=== PATIENT | female | born 1995 | race Caucasian/White ===

== ENCOUNTER → 2017-11-22 | Outpatient (CLI) | payer OTHER ==
[~2017-11-22] MED LIST: ACET-2303 PO; ACHD5005 PO; AMOX500C2 PO; CIPR500T4 PO; DCS100C PO; FRS325T PO; HYDR1TAB8 OP; IBP600T1 PO; LBT200T PO; LRT10T; METR500T21 PO; ONDA4TAB11 PO; PREN1TAB14 PO; TRAM50TA2 PO
--- NOTE | 2017-11-22 12:31 | Diagnostic Imaging Report ---
INDICATION: survey. TECHNIQUE: Multiple real-time grayscale images were obtained over the gravid uterus. COMPARISON: There are no prior studies available for comparison. FINDINGS: There is a single live fetus in breech presentation. heart motion was noted and a rate of 158 BPM is recorded. There are no abnormalities identified. The growth parameters are fairly uniform. However the LMP percentile is only in the 4th percentile. The placenta is posterior and there is no previa. The amniotic fluid volume is within normal limits. Biometrical measurements are as follows: Biparietal 4.0 cm, age 18 weeks 2 days. Head circumference 15.6 cm, age 18 weeks 4 days. Abdominal circumference 13.6 cm, age 19 weeks 1 days. Femur length 2.8 cm, age 18 weeks 4 days. Sonographic estimate age: 18 weeks 5 days. Sonographic estimated date of delivery: 04/20/18. Estimated Weight: 256 gm (+/- 37 gm). LMP percentile: 4%. heart rate: 158 beats per minute. number: 1 of 1. IMPRESSION: 1. There is a single live fetus approximately 18 weeks 5 days gestation +/- 1 week. The EDC is April 20, 2018. 2. There were no abnormalities identified. 3. The growth parameters suggest the estimated gestational age is in the 4th percentile. This does suggest IUGR if the dates are correct. A short-term (4-6 week) followup exam would be recommended for continued evaluation of the growth. Dictated by: Dictated on workstation # [id number]
== END ==
LOC: RAD 10:01
PROVIDERS: ATTEND Obstetrics & Gynecology
DX: Z36.89 Encounter for other specified antenatal screening (principal); Z3A.18 18 weeks gestation of pregnancy
CPT/HCPCS: 76805

== ENCOUNTER 2018-03-14 09:00 | Outpatient (CLI) | payer OTHER ==
[~2018-03-14 09:00] MED LIST changes: +BETAMETHASONE ACE/NA PHOS 6 MG/ML (CELESTONE SOLUSPAN) IM SCH
[2018-03-14 09:05] VITALS: BP 152/96
[2018-03-14] MEDS ORDERED: D5 LR IV SOLUTION 1,000 ML IV ONE (09:13)
[2018-03-14] MEDS ORDERED: D5 LR IV SOLUTION 1,000 ML IV SCH (09:15)
[2018-03-14] MEDS ORDERED: BETAMETHASONE ACE/NA PHOS 6 MG/ML (CELESTONE SOLUSPAN) ONE (09:19)
[2018-03-14 09:43] LABS: HEMOGLOBIN 11.1 G/DL (11.5-16.0); MEAN PLATELET VOLUME 10.1 FL (7.4-10.4); RED BLOOD COUNT 3.4 10^6/uL (4.35-5.85); RED CELL DISTRIBUTION WIDTH 13.3 % (10.0-14.5); WHITE BLOOD COUNT 10.5 10^3/uL (4.3-11.0)
[2018-03-14] MEDS ORDERED: PREN-37 PO ×2 (11:27)
[2018-03-15] MEDS ORDERED: BETAMETHASONE ACE/NA PHOS 6 MG/ML (CELESTONE SOLUSPAN) IM SCH (09:00)
--- NOTE | 2018-03-15 15:35 | Physician Query-Final Dx ---
MATEO MICHELLE 03/15/18 1535: Clinic Account Progress/Dx Physician Query: Please give diagnosis Date of Service March 14, 2018 at 09:00 BETTY GALAVIZ DO 03/19/18 0705: Clinic Account Progress/Dx DIAGNOSIS: Diagnosis 36 week IUP IUGR <5th percentile MATEO MICHELLE March 15, 2018 15:35 BETTY GALAVIZ DO Mar 19, 2018 07:05
[2018-03-19] MEDS ORDERED: ACHD5005 PO (21:00)
[2018-03-19] MEDS ORDERED: IBUP-844 PO (21:00)
[2018-03-19] MEDS ORDERED: DOCU100C37 PO (21:00)
== END 2018-03-14 11:35 | disposition home or self-care (01) ==
LOC: LDRP 09:00 → WSo 09:00
PROVIDERS: ATTEND Obstetrics & Gynecology
DX: O36.5930 Maternal care for other known or suspected poor fetal growth, third trimester, not applicable or unspecified (principal); Z3A.36 36 weeks gestation of pregnancy
CPT/HCPCS: 36415; 85027; 86850; 86900; 86901; 96360; 96361; 96372; 99213

== ENCOUNTER → 2018-03-15 | Outpatient (CLI) | payer OTHER ==
[~2018-03-15] MED LIST changes: -BETAMETHASONE ACE/NA PHOS 6 MG/ML (CELESTONE SOLUSPAN) IM SCH; +BETAMETHASONE ACE/NA PHOS 6 MG/ML (CELESTONE SOLUSPAN) ONE; +CITA10TA12 PO; +DOCU100C37 PO; +FERR-84 PO; +IBUP-844 PO; +OXYC-471 PO; +PREN-37 PO
[2018-03-15 10:14] VITALS: BP 134/78
--- NOTE | 2018-03-19 14:08 | Physician Query-Final Dx ---
ANGELLA GIMENEZ 03/19/18 1408: Clinic Account Progress/Dx Physician Query: Please give diagnosis Date of Service March 15, 2018 at 09:02 BETTY GALAVIZ DO 03/19/18 1655: Clinic Account Progress/Dx DIAGNOSIS: Diagnosis 36 week IUP Oligohydramnios IUGR ANGELLA GIMENEZ Mar 19, 2018 14:08 BETTY GALAVIZ DO Mar 19, 2018 16:55
== END ==
LOC: WSo 09:02
PROVIDERS: ATTEND Obstetrics & Gynecology
DX: O41.03X0 Oligohydramnios, third trimester, not applicable or unspecified (principal); O36.5930 Maternal care for other known or suspected poor fetal growth, third trimester, not applicable or unspecified; Z3A.36 36 weeks gestation of pregnancy
CPT/HCPCS: 59025; 96372

== ENCOUNTER 2018-03-19 13:35 | Inpatient (IN) | payer OTHER ==
[2018-03-19] VITALS (7 sets, daily range): BP systolic 123–157; BP diastolic 73–104
[~2018-03-19] VITALS: Ht 157.5 cm; Wt 53.6 kg
[~2018-03-19 13:35] MED LIST changes: -BETAMETHASONE ACE/NA PHOS 6 MG/ML (CELESTONE SOLUSPAN) ONE; -CITA10TA12 PO; -DOCU100C37 PO; -FERR-84 PO; -IBUP-844 PO; -OXYC-471 PO
[2018-03-19] MEDS ORDERED: D5 LR IV SOLUTION 1,000 ML IV ONE (15:04)
[2018-03-19] MEDS: D5 LR IV SOLUTION 1,000 ML IV SCH ×2 (15:10→15:36)
[2018-03-19 15:22] LABS: BASOPHILS % (AUTO) 0 % (0-10); EOSINOPHILS # (AUTO) 0.2 10^3/uL (0.0-0.3); EOSINOPHILS % (AUTO) 1 % (0-10); HEMATOCRIT 32 % (35-52); HEMOGLOBIN 11.5 G/DL (11.5-16.0); LYMPHOCYTES # (AUTO) 2.2 X 10^3 (1.0-4.0); LYMPHOCYTES % (AUTO) 14 % (12-44); MEAN CORPUSCULAR HEMOGLOBIN 34 PG (25-34); MEAN CORPUSCULAR HGB CONC 36 G/DL (32-36); MEAN CORPUSCULAR VOLUME 94 FL (80-99); MEAN PLATELET VOLUME 10.6 FL (7.4-10.4); MONOCYTES # (AUTO) 1.3 X 10^3 (0.0-1.0); MONOCYTES % (AUTO) 8 % (0-12); NEUTROPHILS # (AUTO) 12.2 X 10^3 (1.8-7.8); NEUTROPHILS % (AUTO) 77 % (42-75); PLATELET COUNT 175 10^3/uL (130-400); RED BLOOD COUNT 3.43 10^6/uL (4.35-5.85); RED CELL DISTRIBUTION WIDTH 12.8 % (10.0-14.5); WHITE BLOOD COUNT 15.8 10^3/uL (4.3-11.0)
[2018-03-19 15:46] LABS: BAND NEUTROPHILS 0 %; BASOPHILS % (MANUAL) 0 %; EOSINOPHILS % (MANUAL) 2 %; LYMPHOCYTES % (MANUAL) 12 %; MONOCYTES % (MANUAL) 10 %; NEUTROPHILS % (MANUAL) 76 %
[2018-03-19 15:47] LABS: RBC MORPH NORMAL
--- NOTE | 2018-03-19 16:59 | History & Physical-OB ---
OB - Chief Complaint & HPI Date/Time Date of Admission: Date of Admission: Mar 19, 2018 at 1:35 pm Time Seen by Provider: 13:30 Chief Complaint/History OB-Reason for Admission/Chief: Section Hx : 3 Hx Para: 1 Expected Date of Delivery: Apr 11, 2018 Gestational Age in Weeks: 36 Gestational Age in Days: 4 Indication for : desires repeat Other reason for admission: Sent up from clinic due to worsening Oligohydramnios on today's BPP due to severe IUGR. Grade 4 placenta Admission Nurse Assessment Rev: Yes History of Labs B pos Antibody neg RI RPR NR HBsAg NR HIV NR GC neg GBS neg Allergies and Home Medications Allergies Coded Allergies: NKANo Known Allergies (Unverified Allergy, Mild, 12/06/09) Home Medications Vit/Iron Fumarate/FA 1 Each Tablet, 1 EACH PO DAILY, (Reported) Patient Home Medication List Home Medication List Reviewed: Yes OB - History Hx of Present Care: Yes Ultrasounds: Abnormal US findings (Severe IUGR) Obstetrical Complications: Growth Restriction (<5%tile) Obstetrical History Hx Induced Hypertens: Yes (this ) Delivery History Hx Blood Disorders: No Adverse Rxn to Tranfusion: No Patient Past Medical History Hx of abruption, and tobacco use/substance abuse Social History/Family History HIV/AIDS: No Recent Infectious Disease Expo: No Sexually Transmitted Disease: No 2nd Hand Smoke Exposure: No Immunizations Hepatitis B: No Tetanus Booster (TDap): Unknown OB - Admission Exam Physical Exam HEENT: NCAT Heart: Rhythm Normal Lungs: Clear Abdomen: Gravid Extremities: Normal Reflexes: Normal Membranes: Intact Heart Rate: 130's Accelerations: Accelerations Present Decelerations: No Decelerations Short Term Variability: Present Senior Living Variability: Average (6-25) Contractions on Admission: >10 Minutes Apart Intensity: Mild Labs Laboratory Tests Test 03/19/18 15:10 Range/Units White Blood Count 15.8 H 4.3-11.0 10^3/uL Red Blood Count 3.43 L 4.35-5.85 10^6/uL Hemoglobin 11.5 11.5-16.0 G/DL Hematocrit 32 L 35-52 % Mean Corpuscular Volume 94 80-99 FL Mean Corpuscular Hemoglobin 34 25-34 PG Mean Corpuscular Hemoglobin Concent 36 32-36 G/DL Red Cell Distribution Width 12.8 10.0-14.5 % Platelet Count 175 130-400 10^3/uL Mean Platelet Volume 10.6 H 7.4-10.4 FL Neutrophils (%) (Auto) 77 H 42-75 % Lymphocytes (%) (Auto) 14 12-44 % Monocytes (%) (Auto) 8 0-12 % Eosinophils (%) (Auto) 1 0-10 % Basophils (%) (Auto) 0 0-10 % Neutrophils # (Auto) 12.2 H 1.8-7.8 X 10^3 Lymphocytes # (Auto) 2.2 1.0-4.0 X 10^3 Monocytes # (Auto) 1.3 H 0.0-1.0 X 10^3 Eosinophils # (Auto) 0.2 0.0-0.3 10^3/uL Basophils # (Auto) 0.0 0.0-0.1 10^3/uL Neutrophils % (Manual) 76 % Lymphocytes % (Manual) 12 % Monocytes % (Manual) 10 % Eosinophils % (Manual) 2 % Basophils % (Manual) 0 % Band Neutrophils 0 % Blood Morphology Comment NORMAL OB - Assessment/Plan/Diagnosis Assessment Assessment: section Admission Dx 23 yo @ 36.4 weeks Severe IUGR <5th%tile Oligohydramnios Previous Tobacco use in Admission Status: Inpatient Order (span 2 midnights) Reason for Inpatient Admission: 23 yo @ 36.4 weeks Severe IUGR <5th%tile Oligohydramnios Previous Tobacco use in Plan Plan: Section BETTY GALAVIZ DO Mar 19, 2018 4:59 pm
[2018-03-19] MEDS ORDERED: raNItidine 50 MG/2 ML INJ (ZANTAC) ONE (20:16)
[2018-03-19] MEDS ORDERED: METOCLOPRAMIDE INJ 10 MG/2 ML (REGLAN) ONE (20:16)
[2018-03-19] MEDS ORDERED: CITRIC ACID/SOB CIT (BICITRA) 30 ML UDC ONE (20:16)
[2018-03-19] MEDS ORDERED: NS (IVPB) 50 ML ONE (20:17)
[2018-03-19] MEDS ORDERED: ceFAZolin 1,000 MG (ANCEF) VIAL ONE (20:17)
[2018-03-19] MEDS ORDERED: LACTATED RINGERS 1,000 ML IV ONE ×2 (20:17)
[2018-03-19] MEDS ORDERED: fentaNYL INJECTION 100 MCG/2 ML AMP ONE (20:44)
[2018-03-19] MEDS ORDERED: OXYTOCIN/NORMAL SALINE 1,000 ML IV ONE (20:44)
[2018-03-19] MEDS ORDERED: BUPIVACAINE SPINAL 0.75% (SENSORCAINE) 2 ML AMP ONE (20:47)
[2018-03-19] MEDS ORDERED: OXYTOCIN/NORMAL SALINE 500 ML IV SCH (20:55)
--- NOTE | 2018-03-19 20:58 | Discharge Inst-Women's Service ---
Discharge Inst-Women's Serv Depart Medication/Instructions New, Converted or Re-Newed RX: RX on Chart Consults/Follow Up Additional Follow Up: Yes Orders/Referrals Dr. Ahumada in 7-10 days and in 6 weeks Activity Activity: Activity as Tolerated Driving Instructions: No Driving for 1 Week NO SMOKING: NO SMOKING Nothing Inside Vagina: No Douching, No [place], No Tampons Diet Discharge Diet: No Restrictions Symptoms to Report to : Bleeding Excessive, Pain Increased, Fever Over 101 Degrees F, Vaginal Bleeding Increase, Questions/Concerns For Any Problems or Questions: Contact Your Physician Skin/Wound Care Infection Signs and Symptoms: Increased Redness, Foul Odor of Wound, Increased Drainage, Skin Itchy or Has a Rash, Increased Swelling, Temperature Above 101 F Operative Area Clean and Dry: Keep Incision Clean/Dry Stitches/Tyrese/Dermabond: Dermabond, Care of Stitches Bathing Instructions: BETTY Bernal DO Mar 19, 2018 8:58 pm
[2018-03-19] MEDS ORDERED: IBUP-844 PO (21:00)
[2018-03-19] MEDS ORDERED: DOCU100C37 PO (21:00)
[2018-03-19] MEDS ORDERED: MEASLES,MUMPS,RUBELLA 1 EA INJ SC SCH (21:00)
[2018-03-19] MEDS ORDERED: TETANUS,DIPTH,PERTUSS P/F (BOOSTRIX) 0.5 ML VIAL IM SCH (21:00)
[2018-03-19] MEDS ORDERED: ACHD5005 PO (21:00)
[2018-03-19] MEDS ORDERED: ONDANSETRON 4 MG/2 ML (SDV) Z0FRAN IVP PRN (21:00)
[2018-03-19] MEDS ORDERED: PHENYLEPHRINE 100 MCG/ML 10 ML (ANESTHESIA) SYR ONE (21:40)
[2018-03-19] MEDS: KETOROLAC 30 MG/ML VIAL IVP SCH (23:52)
[2018-03-20] VITALS (11 sets, daily range): BP systolic 100–147; BP diastolic 63–99
[2018-03-20] MEDS: HYDROcodone/APAP 5 MG/325 MG (LORTAB) TAB PO PRN ×2 (01:05→06:39)
[2018-03-20] MEDS: HYDROmorphone 1 MG/ML (DILAUDID) 1 ML SYRINGE IV PRN ×2 (01:59→08:19)
--- NOTE | 2018-03-20 02:43 | OPERATIVE REPORT ---
DATE OF SERVICE: PREOPERATIVE DIAGNOSES: 1. A 23-year-old G3, P1 at 36 weeks and 4 days gestation. 2. Severe intrauterine growth restriction. 3. Worsening oligohydramnios. 4. Previous section. 5. Tobacco use in . POSTOPERATIVE DIAGNOSES: 1. A 23-year-old G3, P1 at 36 weeks and 4 days gestation. 2. Severe intrauterine growth restriction. 3. Worsening oligohydramnios. 4. Previous section. 5. Tobacco use in . PROCEDURE: Repeat low transverse section. SURGEON: Ollie Galaviz DO. ANESTHESIA: Spinal. ESTIMATED BLOOD LOSS: 500 mL. URINE OUTPUT: 50 mL clear at the end of the procedure. FLUIDS: 1900 mL of lactated Ringer solution. FINDINGS: A live female weighing 5 pounds 2 ounces, Apgars of 8 and 9. Grossly normal appearing uterus, bilateral fallopian tubes and ovaries. SPECIMENS: Placenta. INDICATIONS: This 23-year-old female is a patient who had sought a care in my office throughout her . There was an identification of a size less than dates at approximately 26 weeks from that point on. Growth scans were done at 28 weeks and beyond every two to three weeks. She consistently measured less than 10th percentile, then was less than 5th percentile, latest scans were in the less than 3rd percentile with a sudden decrease in amniotic fluid index. Today, her amniotic fluid had finally dropped down to less than 3 cm. Due to worsening oligohydramnios and concerns for wellbeing, I recommended to the patient proceeding with delivery. Risk of the was reviewed with the patient in detail including risk of bleeding, infection, damage to surrounding structures including, but not limited to bowel, bladder, ureter, kidneys and risk for prematurity. However, she did receive betamethasone last week. As anticipated, there may be early delivery. After everything was discussed with the patient, consent was obtained in the preoperative area and the patient was taken to the operating room. OPERATIVE REPORT IN DETAIL: Once in the operating room and spinal analgesic was found to be adequate, she was placed in the supine position with a leftward tilt, prepped and draped in normal sterile fashion. Timeout was performed. Anesthesia was tested. I then proceeded with making a Pfannenstiel skin incision through the previously existing scar using a knife and carried down to the underlying fascia using Bovie cautery. The fascial incision extended laterally using Bovie cautery. Superior aspect of the fascial incision was then grasped with Lino clamps, tented up and dissected off the underlying rectus muscles. The inferior aspect of the fascial incision was then grasped with Lino clamps, tented up and dissected off of the underlying rectus muscles. The rectus muscle was then dissected down the midline using blunt traction and Harrington scissors, which exposed the peritoneum, which entered bluntly and extended using blunt traction. I then placed an Juan Alberto ring retractor in the peritoneal incision, which offered excellent lateral sidewall retraction. I then proceeded with making a low transverse incision to the vesicouterine peritoneum with a knife and bluntly dissected off the lower uterine segment. I proceeded with myotomy until membranes were visualized, at which point, I extended uterine incision laterally and superiorly using bandage scissors. Amniotomy was performed. Clear fluid was noted at the time of rupture. The infant was found in the vertex presentation. With gentle fundal pressure, the infant's head was elevated out of the incision where it is bulb suctioned both nares and oropharynx. The anterior and posterior shoulders were delivered. The infant was then brought to the operative field where the cord was doubly clamped and cut and infant was handed off to Dr. Ross, who was there for delivered. Cord blood was collected. Three-vessel cord intact placenta was delivered spontaneously thereafter. IV Pitocin was initiated to facilitate uterine contraction. Uterine fundus became firmer with bimanual massage. Uterus was then exteriorized and cleared of all endometrial clots and debris. I then proceeded with closing the uterine incision using 0 Vicryl suture in running locked fashion. Second layer of imbricating 0 Monocryl was placed. Excellent hemostasis was noted after doing this. I then placed the uterus back in the pelvis and copiously irrigated the pelvis using normal saline. Once again, there was no active bleeding from any of my dissection plane. I then placed Interceed antiadhesive over my low transverse incision and proceeded with closing the peritoneum using 3-0 Vicryl suture in a running fashion. The rectus muscle was reapproximated using 3-0 Vicryl suture in interrupted fashion. The fascia was reapproximated using 0 Vicryl suture in running fashion and the skin reapproximated using 4-0 Monocryl in a running subcuticular. Dermabond was applied to the incision with a sterile dressing of adhesive white tape. The patient tolerated the procedure well and sent to recovery in stable condition. Lap and sponge counts were correct at the end of the procedure. Instrument count was correct as well. One gram of Ancef given preoperatively for infection prophylaxis. Job ID: [id number] DocumentID: [id number] Dictated Date: 03/19/2018 21:45:23 Smocker Date: 03/20/2018 02:42:43 Dictated By: OLLIE GALAVIZ DO
[2018-03-20 06:09] LABS: BASOPHILS % (AUTO) 0 % (0-10); EOSINOPHILS # (AUTO) 0.1 10^3/uL (0.0-0.3); EOSINOPHILS % (AUTO) 1 % (0-10); HEMATOCRIT 25 % (35-52); HEMOGLOBIN 8.6 G/DL (11.5-16.0); LYMPHOCYTES # (AUTO) 2.7 X 10^3 (1.0-4.0); LYMPHOCYTES % (AUTO) 14 % (12-44); MEAN CORPUSCULAR HEMOGLOBIN 33 PG (25-34); MEAN CORPUSCULAR HGB CONC 35 G/DL (32-36); MEAN CORPUSCULAR VOLUME 94 FL (80-99); MEAN PLATELET VOLUME 10.4 FL (7.4-10.4); MONOCYTES # (AUTO) 1.2 X 10^3 (0.0-1.0); MONOCYTES % (AUTO) 6 % (0-12); NEUTROPHILS % (AUTO) 80 % (42-75); PLATELET COUNT 165 10^3/uL (130-400); RED BLOOD COUNT 2.62 10^6/uL (4.35-5.85); RED CELL DISTRIBUTION WIDTH 12.8 % (10.0-14.5)
[2018-03-20] MEDS: KETOROLAC 30 MG/ML VIAL IVP SCH ×3 (06:38→18:21)
[2018-03-20] MEDS: DOCUSATE SODIUM 100 MG (COLACE) CAP PO SCH ×3 (08:15→19:59)
[2018-03-20] MEDS: CATHETER FLUSH 10 ML SYR IV SCH ×2 (08:19→12:35)
--- NOTE | 2018-03-20 08:57 | Postpartum Progress Note ---
Note Note Day # 1 Subjective: Patient is without complaints. Ambulating, voiding. Tolerating a regular diet without nausea or vomiting. Normal lochia. Pain is well controlled with oral pain medications. /pumping Objective: Vital Sign - Last 24 Hours 03/19/18 03/19/18 03/19/18 03/19/18 14:00 15:10 19:50 20:12 Temp 98.8 98.5 Pulse 93 75 77 71 Resp 20 20 18 B/P (MAP) 127/76 (93) 123/73 (90) 151/104 (120) 137/76 (96) O2 Delivery Room Air Room Air Room Air Room Air 03/19/18 03/19/18 03/19/18 03/19/18 20:30 20:51 23:39 23:51 Temp 97.2 Pulse 70 83 78 Resp 18 18 B/P (MAP) 140/90 (107) 155/79 (104) 157/98 (117) Pulse Ox 98 O2 Delivery Room Air Room Air Room Air Room Air 03/20/18 03/20/18 03:50 08:04 Temp 97.8 99.4 Pulse 93 73 Resp 18 B/P (MAP) 133/75 (94) 117/77 (90) Pulse Ox 98 97 O2 Delivery Room Air Room Air Intake and Output 03/19/18 03/19/18 03/20/18 15:00 23:00 07:00 Output Total 50 ml 900 ml Balance -50 ml -900 ml Laboratory Tests Test 03/19/18 15:10 03/20/18 06:00 Range/Units White Blood Count 15.8 H 20.0 H 4.3-11.0 10^3/uL Red Blood Count 3.43 L 2.62 L 4.35-5.85 10^6/uL Hemoglobin 11.5 8.6 #L 11.5-16.0 G/DL Hematocrit 32 L 25 L 35-52 % Mean Corpuscular Volume 94 94 80-99 FL Mean Corpuscular Hemoglobin 34 33 25-34 PG Mean Corpuscular Hemoglobin Concent 36 35 32-36 G/DL Red Cell Distribution Width 12.8 12.8 10.0-14.5 % Platelet Count 175 165 130-400 10^3/uL Mean Platelet Volume 10.6 H 10.4 7.4-10.4 FL Neutrophils (%) (Auto) 77 H 80 H 42-75 % Lymphocytes (%) (Auto) 14 14 12-44 % Monocytes (%) (Auto) 8 6 0-12 % Eosinophils (%) (Auto) 1 1 0-10 % Basophils (%) (Auto) 0 0 0-10 % Neutrophils # (Auto) 12.2 H 16.0 H 1.8-7.8 X 10^3 Lymphocytes # (Auto) 2.2 2.7 1.0-4.0 X 10^3 Monocytes # (Auto) 1.3 H 1.2 H 0.0-1.0 X 10^3 Eosinophils # (Auto) 0.2 0.1 0.0-0.3 10^3/uL Basophils # (Auto) 0.0 0.0 0.0-0.1 10^3/uL Neutrophils % (Manual) 76 % Lymphocytes % (Manual) 12 % Monocytes % (Manual) 10 % Eosinophils % (Manual) 2 % Basophils % (Manual) 0 % Band Neutrophils 0 % Blood Morphology Comment NORMAL Physical Exam: General - Alert and oriented, no apparent distress Abdomen - Soft, appropriately tender to palpation, non-distended, fundus firm at umbilicus Extremities - no edema, negative Sherif's bilaterally Incision- c/d/i Assessment: POD 1 RLTCS Acute blood loss anemia Plan: Routine care. Encourage breast feeding. Encourage ambulation. Ferrous sulfate supplementation. Plan for discharge tomorrow Vitals - Labs Vital Signs - I&O Vital Signs Date Time Temp Pulse Resp B/P (MAP) Pulse Ox O2 Delivery O2 Flow Rate FiO2 03/20/18 08:04 99.4 73 18 117/77 (90) 97 Room Air 03/20/18 03:50 97.8 93 18 133/75 (94) 98 Room Air 03/19/18 23:51 97.2 78 18 157/98 (117) 98 Room Air 03/19/18 23:39 Room Air 03/19/18 20:51 83 18 155/79 (104) Room Air 03/19/18 20:30 70 18 140/90 (107) Room Air 03/19/18 20:12 71 18 137/76 (96) Room Air 03/19/18 19:50 98.5 77 18 151/104 (120) Room Air 03/19/18 15:10 75 20 123/73 (90) Room Air 03/19/18 14:00 98.8 93 20 127/76 (93) Room Air I & O 03/20/18 07:00 Output Total 950 ml Balance -950 ml Labs Laboratory Tests 03/19/18 15:10: White Blood Count 15.8H, Red Blood Count 3.43L, Hemoglobin 11.5, Hematocrit 32L , Mean Corpuscular Volume 94, Mean Corpuscular Hemoglobin 34, Mean Corpuscular Hemoglobin Concent 36, Red Cell Distribution Width 12.8, Platelet Count 175, Mean Platelet Volume 10.6H, Neutrophils (%) (Auto) 77H, Lymphocytes (%) (Auto) 14, Monocytes (%) (Auto) 8, Eosinophils (%) (Auto) 1, Basophils (%) (Auto) 0, Neutrophils # (Auto) 12.2H, Lymphocytes # (Auto) 2.2, Monocytes # (Auto) 1.3H, Eosinophils # (Auto) 0.2, Basophils # (Auto) 0.0, Neutrophils % (Manual) 76, Lymphocytes % (Manual) 12, Monocytes % (Manual) 10, Eosinophils % (Manual) 2, Basophils % (Manual) 0, Band Neutrophils 0, Blood Morphology Comment NORMAL 03/20/18 06:00: White Blood Count 20.0H, Red Blood Count 2.62L, Hemoglobin 8.6#L, Hematocrit 25L , Mean Corpuscular Volume 94, Mean Corpuscular Hemoglobin 33, Mean Corpuscular Hemoglobin Concent 35, Red Cell Distribution Width 12.8, Platelet Count 165, Mean Platelet Volume 10.4, Neutrophils (%) (Auto) 80H, Lymphocytes (%) (Auto) 14 , Monocytes (%) (Auto) 6, Eosinophils (%) (Auto) 1, Basophils (%) (Auto) 0, Neutrophils # (Auto) 16.0H, Lymphocytes # (Auto) 2.7, Monocytes # (Auto) 1.2H, Eosinophils # (Auto) 0.1, Basophils # (Auto) 0.0 BETTY GALAVIZ DO Mar 20, 2018 8:57 am
[2018-03-20] MEDS: FERROUS SULF 325 MG (IRON) TAB PO SCH ×2 (10:30→18:29)
--- NOTE | 2018-03-20 12:21 | Anesthesia-Regional Post-Op ---
Regional Patient Condition Mental Status: Alert, Oriented x3 Circulation: Same as Pre-Op Headache: Absent Sensation: Full Recovery Motor Block: Absent Post Op Complications Complications None Follow Up Care/Instructions Patient Instructions None needed. Anesthesia/Patient Condition Patient is doing well, no complaints, stable vital signs, no apparent adverse anesthesia problems. No complications reported per nursing. D/C home per [facility] [place] Criteria: No JANNIE CASTRO CRNA Mar 20, 2018 12:21
[2018-03-20 13:24] LABS: BASOPHILS % (AUTO) 0 % (0-10); EOSINOPHILS # (AUTO) 0.1 10^3/uL (0.0-0.3); EOSINOPHILS % (AUTO) 1 % (0-10); HEMATOCRIT 21 % (35-52); LYMPHOCYTES # (AUTO) 2.8 X 10^3 (1.0-4.0); LYMPHOCYTES % (AUTO) 13 % (12-44); MEAN CORPUSCULAR HEMOGLOBIN 32 PG (25-34); MEAN CORPUSCULAR HGB CONC 34 G/DL (32-36); MEAN CORPUSCULAR VOLUME 95 FL (80-99); MONOCYTES # (AUTO) 1.2 X 10^3 (0.0-1.0); MONOCYTES % (AUTO) 6 % (0-12); NEUTROPHILS # (AUTO) 17.5 X 10^3 (1.8-7.8); NEUTROPHILS % (AUTO) 81 % (42-75); PLATELET COUNT 198 10^3/uL (130-400); RED BLOOD COUNT 2.17 10^6/uL (4.35-5.85); RED CELL DISTRIBUTION WIDTH 12.9 % (10.0-14.5); WHITE BLOOD COUNT 21.7 10^3/uL (4.3-11.0)
[2018-03-20] MEDS ORDERED: NS IV 1000 ML 1,000 ML ONE (14:06)
[2018-03-20] MEDS: NS IV 1000 ML 1,000 ML IV SCH ×2 (14:07→14:24)
[2018-03-20] MEDS ORDERED: diphenhydrAMINE 50 MG/ML INJ (BENADRYL) IVP PRN (14:15)
[2018-03-20 14:37] LABS: ALANINE AMINOTRANSFERASE 9 U/L (0-55); ALBUMIN 2.4 GM/DL (3.2-4.5); ALKALINE PHOSPHATASE 136 U/L (40-136); BILIRUBIN,TOTAL 0.3 MG/DL (0.1-1.0); BUN/CREATININE RATIO 20; CALCIUM 8.2 MG/DL (8.5-10.1); CARBON DIOXIDE 23 MMOL/L (21-32); CHLORIDE 107 MMOL/L (98-107); GFR ESTIMATED > 60; GLUCOSE 98 MG/DL (70-105); SODIUM 137 MMOL/L (135-145); TOTAL PROTEIN 4.4 GM/DL (6.4-8.2)
[2018-03-20] MEDS ORDERED: diphenhydrAMINE 25 MG TAB (BENADRYL) PO PRN (14:45)
[2018-03-20] MEDS: ACETAMINOPHEN 325 MG TABLET/CAPLET (TYLENOL) PO PRN ×2 (14:45→18:29)
[2018-03-20] MEDS ORDERED: IOHEXOL 350 MG/ML 100 ML (OMNIPAQUE 350) VIAL IV ONE (15:00)
[2018-03-20] MEDS ORDERED: NS 100 ML (IVPB) BAG IV ONE (15:00)
--- NOTE | 2018-03-20 16:55 | Diagnostic Imaging Report ---
INDICATION: Anemia and nausea, one day post CT abdomen and pelvis obtained with IV contrast COMPARISON to 06/28/2016 FINDINGS: The visualized portions of the lung bases are clear. There were no pleural fluid collections. There is a small amount of free air present which can be explained by recent surgery. The liver and gallbladder and spleen appear unremarkable. There is a small amount of free fluid around the liver. The kidneys and pancreas and adrenals appear normal. There is no retroperitoneal adenopathy. The uterus is enlarged compatible with state. There is a hematoma in the anterior abdominal wall crossing the midline in the pelvis, measuring about 11.8 x 4.5 cm. There is an additional apparently separate hematoma anterior to the bladder to the left of midline measuring about 5.0 x 4.1 cm. There is diffuse ill-defined hematoma and swelling of the rectus muscles. A Maciel catheter is seen in the bladder. IMPRESSION: Enlarged uterus compatible with state. There is a hematoma in the anterior abdominal wall in the pelvis measuring about 11.8 x 4.5 cm. There is a separate hematoma anterior to the bladder to the left of the midline measuring about 5.0 x 4.1 cm. There is ill-defined edema and/or hematoma in the rectus muscles, as well. There is soft tissue gas compatible with recent surgery in the anterior abdominal wall. There is a small amount of free fluid around the liver. There is free intraperitoneal air which can be explained by the recent surgery. Report given to patient's nurse (Lisa) & faxed to [phone] at 4:55 p.m. on 03/17/2018/[email or web address] Dictated by: Dictated on workstation # [id number]
[2018-03-20] MEDS ORDERED: diphenhydrAMINE 25 MG TAB (BENADRYL) PO ONE ×2 (18:27→18:30)
[2018-03-20] MEDS: IBUPROFEN 600 MG (MOTRIN) TAB PO SCH (18:29)
[2018-03-20] MEDS: oxyCODONE/APAP 5/325MG (PERCOCET 5) TABLET PO PRN (19:59)
[2018-03-20 22:22] LABS: BASOPHILS % (AUTO) 0 % (0-10); EOSINOPHILS # (AUTO) 0.2 10^3/uL (0.0-0.3); EOSINOPHILS % (AUTO) 1 % (0-10); HEMATOCRIT 25 % (35-52); HEMOGLOBIN 8.6 G/DL (11.5-16.0); LYMPHOCYTES # (AUTO) 2.5 X 10^3 (1.0-4.0); LYMPHOCYTES % (AUTO) 14 % (12-44); MEAN CORPUSCULAR HEMOGLOBIN 31 PG (25-34); MEAN CORPUSCULAR HGB CONC 35 G/DL (32-36); MEAN CORPUSCULAR VOLUME 90 FL (80-99); MEAN PLATELET VOLUME 10.4 FL (7.4-10.4); MONOCYTES # (AUTO) 1.2 X 10^3 (0.0-1.0); MONOCYTES % (AUTO) 7 % (0-12); NEUTROPHILS # (AUTO) 14.3 X 10^3 (1.8-7.8); NEUTROPHILS % (AUTO) 79 % (42-75); PLATELET COUNT 153 10^3/uL (130-400); RED BLOOD COUNT 2.77 10^6/uL (4.35-5.85); RED CELL DISTRIBUTION WIDTH 15.2 % (10.0-14.5); WHITE BLOOD COUNT 18.1 10^3/uL (4.3-11.0)
[2018-03-21] MEDS: oxyCODONE/APAP 5/325MG (PERCOCET 5) TABLET PO PRN ×4 (00:02→20:59)
[2018-03-21] MEDS: IBUPROFEN 600 MG (MOTRIN) TAB PO SCH ×4 (00:03→18:26)
[2018-03-21] MEDS: NS IV 1000 ML 1,000 ML IV SCH (03:36)
[2018-03-21 05:20] VITALS: BP 133/92
[2018-03-21 06:08] LABS: BASOPHILS % (AUTO) 0 % (0-10); EOSINOPHILS # (AUTO) 0.2 10^3/uL (0.0-0.3); EOSINOPHILS % (AUTO) 1 % (0-10); HEMATOCRIT 24 % (35-52); HEMOGLOBIN 8.3 G/DL (11.5-16.0); LYMPHOCYTES # (AUTO) 2.1 X 10^3 (1.0-4.0); LYMPHOCYTES % (AUTO) 13 % (12-44); MEAN CORPUSCULAR HEMOGLOBIN 32 PG (25-34); MEAN CORPUSCULAR HGB CONC 35 G/DL (32-36); MEAN CORPUSCULAR VOLUME 90 FL (80-99); MEAN PLATELET VOLUME 10.6 FL (7.4-10.4); MONOCYTES # (AUTO) 1.2 X 10^3 (0.0-1.0); MONOCYTES % (AUTO) 7 % (0-12); NEUTROPHILS % (AUTO) 79 % (42-75); PLATELET COUNT 139 10^3/uL (130-400); RED BLOOD COUNT 2.61 10^6/uL (4.35-5.85); RED CELL DISTRIBUTION WIDTH 16.1 % (10.0-14.5); WHITE BLOOD COUNT 16.5 10^3/uL (4.3-11.0)
[2018-03-21 08:00] VITALS: BP 117/76
--- NOTE | 2018-03-21 08:30 | Postpartum Progress Note ---
Post Op Post-operative Day #2 s/p RLTCS; covering for Dr. Ahumada today. History per verbal from Dr. ahumada. No notes available. Apparently pain was increasing yesterday. UO decreasing. Had a mass noted on abdominal exam and drop in hemoglobin. CT was done and diagnosed a rectus sheath hematoma. Given 2 units of PRBCs and hemoglobin is stable today. Maciel catheter has been discontinued. she has ambulated without complaint. Subjective: Patient is without complaints. Ambulating. Has a pressure dressing and abdominal binder for pressure on the hematoma. Maciel to be dc'd as UO has improved. Tolerating a regular diet without nausea or vomiting. Normal lochia. Pain is well controlled with oral pain medications. Passing flatus. breast feeding. Objective: Laboratory Tests Test 03/20/18 13:14 03/20/18 14:10 03/20/18 22:15 03/21/18 05:28 Range/Units White Blood Count 21.7 H 18.1 H 16.5 H 4.3-11.0 10^3/uL Red Blood Count 2.17 L 2.77 L 2.61 L 4.35-5.85 10^6/uL Hemoglobin 7.0 L 8.6 #L 8.3 L 11.5-16.0 G/DL Hematocrit 21 L 25 L 24 L 35-52 % Mean Corpuscular Volume 95 90 90 80-99 FL Mean Corpuscular Hemoglobin 32 31 32 25-34 PG Mean Corpuscular Hemoglobin Concent 34 35 35 32-36 G/DL Red Cell Distribution Width 12.9 15.2 H 16.1 H 10.0-14.5 % Platelet Count 198 153 139 130-400 10^3/uL Mean Platelet Volume 10.0 10.4 10.6 H 7.4-10.4 FL Neutrophils (%) (Auto) 81 H 79 H 79 H 42-75 % Lymphocytes (%) (Auto) 13 14 13 12-44 % Monocytes (%) (Auto) 6 7 7 0-12 % Eosinophils (%) (Auto) 1 1 1 0-10 % Basophils (%) (Auto) 0 0 0 0-10 % Neutrophils # (Auto) 17.5 H 14.3 H 13.0 H 1.8-7.8 X 10^3 Lymphocytes # (Auto) 2.8 2.5 2.1 1.0-4.0 X 10^3 Monocytes # (Auto) 1.2 H 1.2 H 1.2 H 0.0-1.0 X 10^3 Eosinophils # (Auto) 0.1 0.2 0.2 0.0-0.3 10^3/uL Basophils # (Auto) 0.0 0.0 0.0 0.0-0.1 10^3/uL Sodium Level 137 135-145 MMOL/L Potassium Level 4.0 3.6-5.0 MMOL/L Chloride Level 107 98-107 MMOL/L Carbon Dioxide Level 23 21-32 MMOL/L Anion Gap 7 5-14 MMOL/L Blood Urea Nitrogen 12 7-18 MG/DL Creatinine 0.60 0.60-1.30 MG/DL Estimat Glomerular Filtration Rate > 60 BUN/Creatinine Ratio 20 Glucose Level 98 70-105 MG/DL Calcium Level 8.2 L 8.5-10.1 MG/DL Total Bilirubin 0.3 0.1-1.0 MG/DL Aspartate Amino Transf (AST/SGOT) 15 5-34 U/L Alanine Aminotransferase (ALT/SGPT) 9 0-55 U/L Alkaline Phosphatase 136 40-136 U/L Total Protein 4.4 L 6.4-8.2 GM/DL Albumin 2.4 L 3.2-4.5 GM/DL 03/20/18 03/20/18 03/21/18 03/21/18 21:30 23:55 05:20 08:00 Temp 99.2 99.3 98.0 98.2 Pulse 84 82 75 64 Resp 18 18 18 16 B/P (MAP) 130/77 (94) 143/92 (109) 133/92 (106) 117/76 (90) Pulse Ox 96 98 98 96 O2 Delivery Room Air Room Air Room Air Room Air 03/21/18 00:00 Intake Total 1210 ml Output Total 600 ml Balance 610 ml 1600 urine out 12 hours Physical Exam: General - Alert and oriented, no apparent distress Abdomen - Soft, appropriately tender to palpation, non-distended, fundus firm at umbilicus Incision - clean, dry and intact; no erythema or induration, no drainage Extremities - no edema, negative Sherif's bilaterally Assessment: 1. post-operative day # 2, status post RLTCS Recovering well, hemodynamically stable 2. Acute blood loss anemia, s/p 2 units PRBCs; stable 3. rectus sheath hematoma; post operative hematoma 4. post hemorrhage Plan: Routine post-operative care. Encourage breast feeding. Encourage ambulation. VTE prophylaxis: SCDs. Ferrous sulfate supplementation. Plan for discharge possible tomorrow Vitals - Labs Vital Signs - I&O Vital Signs Date Time Temp Pulse Resp B/P (MAP) Pulse Ox O2 Delivery O2 Flow Rate FiO2 03/21/18 08:00 98.2 64 16 117/76 (90) 96 Room Air 03/21/18 05:20 98.0 75 18 133/92 (106) 98 Room Air 03/20/18 23:55 99.3 82 18 143/92 (109) 98 Room Air 03/20/18 21:30 99.2 84 18 130/77 (94) 96 Room Air 03/20/18 19:07 100.2 99 16 136/85 99 Room Air 03/20/18 18:52 99.6 85 16 126/78 98 Room Air 03/20/18 18:13 99.6 85 16 126/78 98 Room Air 03/20/18 15:25 99.4 116 18 147/99 100 Room Air 03/20/18 15:10 99.1 91 16 123/79 100 Room Air 03/20/18 12:33 98.6 100 16 110/71 (84) 100 Room Air 03/20/18 10:50 112 16 100/63 (75) 100 Room Air I & O 03/21/18 07:00 Intake Total 1210 ml Output Total 2200 ml Balance -990 ml Labs Laboratory Tests 03/20/18 13:14: White Blood Count 21.7H, Red Blood Count 2.17L, Hemoglobin 7.0L, Hematocrit 21L , Mean Corpuscular Volume 95, Mean Corpuscular Hemoglobin 32, Mean Corpuscular Hemoglobin Concent 34, Red Cell Distribution Width 12.9, Platelet Count 198, Mean Platelet Volume 10.0, Neutrophils (%) (Auto) 81H, Lymphocytes (%) (Auto) 13 , Monocytes (%) (Auto) 6, Eosinophils (%) (Auto) 1, Basophils (%) (Auto) 0, Neutrophils # (Auto) 17.5H, Lymphocytes # (Auto) 2.8, Monocytes # (Auto) 1.2H, Eosinophils # (Auto) 0.1, Basophils # (Auto) 0.0 03/20/18 14:10: Sodium Level 137, Potassium Level 4.0, Chloride Level 107, Carbon Dioxide Level 23, Anion Gap 7, Blood Urea Nitrogen 12, Creatinine 0.60, Estimat Glomerular Filtration Rate > 60, BUN/Creatinine Ratio 20, Glucose Level 98, Calcium Level 8.2L, Total Bilirubin 0.3, Aspartate Amino Transf (AST/SGOT) 15, Alanine Aminotransferase (ALT/SGPT) 9, Alkaline Phosphatase 136, Total Protein 4.4L, Albumin 2.4L 03/20/18 22:15: White Blood Count 18.1H, Red Blood Count 2.77L, Hemoglobin 8.6#L, Hematocrit 25L , Mean Corpuscular Volume 90, Mean Corpuscular Hemoglobin 31, Mean Corpuscular Hemoglobin Concent 35, Red Cell Distribution Width 15.2H, Platelet Count 153, Mean Platelet Volume 10.4, Neutrophils (%) (Auto) 79H, Lymphocytes (%) (Auto) 14 , Monocytes (%) (Auto) 7, Eosinophils (%) (Auto) 1, Basophils (%) (Auto) 0, Neutrophils # (Auto) 14.3H, Lymphocytes # (Auto) 2.5, Monocytes # (Auto) 1.2H, Eosinophils # (Auto) 0.2, Basophils # (Auto) 0.0 03/21/18 05:28: White Blood Count 16.5H, Red Blood Count 2.61L, Hemoglobin 8.3L, Hematocrit 24L , Mean Corpuscular Volume 90, Mean Corpuscular Hemoglobin 32, Mean Corpuscular Hemoglobin Concent 35, Red Cell Distribution Width 16.1H, Platelet Count 139, Mean Platelet Volume 10.6H, Neutrophils (%) (Auto) 79H, Lymphocytes (%) (Auto) 13, Monocytes (%) (Auto) 7, Eosinophils (%) (Auto) 1, Basophils (%) (Auto) 0, Neutrophils # (Auto) 13.0H, Lymphocytes # (Auto) 2.1, Monocytes # (Auto) 1.2H, Eosinophils # (Auto) 0.2, Basophils # (Auto) 0.0 RASHMI BRYAN DO Mar 21, 2018 08:29
[2018-03-21] MEDS: FERROUS SULF 325 MG (IRON) TAB PO SCH ×2 (08:47→18:10)
[2018-03-21] MEDS: DOCUSATE SODIUM 100 MG (COLACE) CAP PO SCH ×2 (08:47→20:59)
[2018-03-21 12:00] VITALS: BP 135/87
[2018-03-21 16:15] VITALS: BP 126/78
[2018-03-21 21:00] VITALS: BP 153/88
[2018-03-22 01:20] VITALS: BP 145/85
[2018-03-22] MEDS: IBUPROFEN 600 MG (MOTRIN) TAB PO SCH ×3 (01:22→15:42)
[2018-03-22] MEDS: oxyCODONE/APAP 5/325MG (PERCOCET 5) TABLET PO PRN ×2 (02:44→11:39)
[2018-03-22] MEDS: FERROUS SULF 325 MG (IRON) TAB PO SCH (09:33)
[2018-03-22] MEDS: DOCUSATE SODIUM 100 MG (COLACE) CAP PO SCH (09:33)
[2018-03-22 09:35] VITALS: BP 134/86
--- NOTE | 2018-03-22 11:59 | Postpartum Progress Note ---
Post Op Post-operative Day #3 s/p Subjective: Patient is without complaints. Ambulating, voiding after ruggiero removed. Tolerating a regular diet without nausea or vomiting. Normal lochia. Pain is well controlled with oral pain medications. Passing flatus. breast feeding. States pain is better. Vitals stable Objective: 03/22/18 03/22/18 01:20 09:35 Temp 97.7 99.2 Pulse 94 77 Resp 18 16 B/P (MAP) 145/85 (105) 134/86 (102) Pulse Ox 97 99 O2 Delivery Room Air Room Air 03/22/18 00:00 Intake Total 1000 ml Output Total 450 ml Balance 550 ml Physical Exam: General - Alert and oriented, no apparent distress Abdomen - Soft, appropriately tender to palpation, non-distended, fundus firm at umbilicus Incision - clean, dry and intact; no erythema or induration, no drainage Extremities - no edema, negative Sherif's bilaterally Assessment: 1. post-operative day # 3, status post RLTCS. Recovering well, hemodynamically stableAcute blood loss anemia 2. PPH with rectus hematoma, stable 3. Acute blood loss anemia - stable Plan: Routine post-operative care. Encourage breast feeding. Encourage ambulation. VTE prophylaxis: SCDs. Ferrous sulfate supplementation. Plan for discharge today Vitals - Labs Vital Signs - I&O Vital Signs Date Time Temp Pulse Resp B/P (MAP) Pulse Ox O2 Delivery O2 Flow Rate FiO2 03/22/18 09:35 99.2 77 16 134/86 (102) 99 Room Air 03/22/18 01:20 97.7 94 18 145/85 (105) 97 Room Air 03/21/18 21:00 98.4 97 18 153/88 (109) 99 Room Air 03/21/18 16:15 98.4 76 18 126/78 (94) Room Air 03/21/18 12:00 99.6 100 16 135/87 (103) 98 Room Air I & O 03/22/18 07:00 Intake Total 1000 ml Output Total 900 ml Balance 100 ml RASHMI BRYAN DO Mar 22, 2018 11:59
[2018-03-22] MEDS ORDERED: OXYC-471 PO (12:00)
[2018-03-22] MEDS ORDERED: CITA10TA12 PO (16:02)
--- NOTE | 2018-03-22 16:08 | Progress Note-Standard ---
Standard Progress Note Progress Notes/Assess & Plan Date Seen by Provider: Mar 22, 2018 Time Seen by Provider: 13:30 Progress/Assessment & Plan Patient was discharged earlier to boarder status because baby was and small and having some weight loss. RN called me to see patient now because she had been noted to be crying. Anna states she "just can't stop crying". States she is not sure why and is concerned about post depression. States that she did not have depression after the last but does have a history of anxiety and depression. Has been on Zoloft and buspirone in the past. States she had hallucinations with the Zoloft and doesn't want to take it, but states she only took it with the buspirone and wasn't sure if it was the combination. States she thought she did well on the buspirone, but doesn't want to start that right now because she is concerned that this is "just depression". States she feels supported, but "I just want to cry". Offered counselling and consideration of medication. Offered to come back later and see what she had decided but patient decided she wishes to start something now. States she wants to pump but is bottle feeding right now. Wants to eventually breast feed more but is concerned about the baby's weight loss. Will start Celexa. She is a boarder so I will stop to see her tomorrow. If she is discharged before Dr. Ahumada gets back she will follow up with me on Monday. She does have an appointment with Dr. Ahumada next week for the post operative exam. States her stomach 'feels fine" but some pain with movement. It is controlled with medication. RASHMI BRYAN DO Mar 22, 2018 16:08
[2018-03-22] MEDS ORDERED: FERR-84 PO (16:25)
--- NOTE | 2018-04-01 20:56 | DISCHARGE SUMMARY ---
DATE OF SERVICE: 03/22/2018 ADMITTING DIAGNOSES: 1. A 23-year-old G3, P1 at 36 weeks and 4 days gestation. 2. Severe IUGR less than 5th percentile. 3. Oligohydramnios. 4. Previous . 5. Tobacco use in . DISCHARGE DIAGNOSES: 1. A 23-year-old G3, P1 at 36 weeks and 4 days gestation. 2. Severe IUGR less than 5th percentile. 3. Oligohydramnios. 4. Previous . 5. Tobacco use in plus day #3. Repeat low transverse section. 6. hemorrhage within the rectus abdominal muscle and hematoma formation. 7. Acute blood loss anemia. ATTENDING PHYSICIAN: Betty Galaviz with coverage by Dr. Megha Andujar. SERVICE: [facility]. HOSPITAL COURSE: Is as follows: Please see admission H and P from 03/19/2018 for complete details pertaining to the patient's admission, presentation, and physical examination, and assessment. Please see operative report from 03/20/2018 for complete details pertaining to the patient's operative report in detail as well as the indications for procedure. Postoperative course of this patient was complicated by rectus muscle hematoma and acute blood loss anemia. On post- day #1, the patient did appear to be doing well that morning. She was tolerating regular diet and had not yet been up to ambulate or void yet. However, blood pressures were elevated. Her heart rate was noted to be slightly increased and she had a blood count drop in her hemoglobin from 11.5 to 8.6. At that point, hematoma was not suspected. The patient was asymptomatic for lightheadedness or dizziness, but later in the day, the patient became lightheaded and dizzy. A stat CT of the abdomen revealed a large rectus abdominis hematoma in the midline measuring a 11.8 x 4.5 cm and a separate hematoma measuring 5 x 4.1 cm. The patient was ordered blood transfusion due to a drop in her hemoglobin from 8.6 down to 7. Later that day, her hemoglobin was repeated after transfusion and found to be back up to 8.6 and found to be stable the following morning at 8.3. An abdominal binder was applied to the abdomen and after blood transfusion, the patient's symptomatic anemia did seem to resolve on postoperative day #2. The patient's catheter was discontinued and she was ambulating without complaint. Urine output was adequate. She was encouraged to ambulate. She was found to be clinically stable at that point. Her incision was clean, dry and intact. She continued to progress. On postoperative day #3, she was ambulating and voiding freely. Her pain was doing much better after the hematoma was found to be stable. Discharge was planned for postoperative day #3. However, due to some complications with the patient and concerns for depression, she was kept on day #4 due to this as well as a complication surrounding the hematoma formation, the acute blood loss anemia and the fact that they were keeping her infant for one more day. She was started on Celexa, instructed to follow up in the short term with Dr. Galaviz in the office. She was given routine postoperative and precautions at that point. She was sent home on the following medications Includin. Celexa 10 mg daily #30. 2. Colace 100 mg p.o. b.i.d. p.r.n. for constipation #40. 3. Ferrous sulfate 325 mg p.o. b.i.d. #120. 4. Ibuprofen 600 mg 1 p.o. q.6 hours p.r.n. as needed for cramping #80 5. Oxycodone 5/325 one to two p.o. 4-6 hours p.r.n. as needed for pain, #30. She was told to continue her vitamin. All other questions were answered pertaining to precautions and administration of the medications and she was instructed to follow up in less than a week. The patient agreed to comply with this. At that point, discharge was facilitated without further difficulty. Job ID: [id number] DocumentID: [id number] Dictated Date: 04/01/2018 16:17:11 [employer] Light Servicer Supervisor Date: 04/01/2018 20:56:15 Dictated By: BETTY GALAVIZ DO
== END 2018-03-22 16:18 | disposition home or self-care (01) | DRG 765 ==
LOC: LDRP 13:35
PROVIDERS: ADMIT Obstetrics & Gynecology; ATTEND Obstetrics & Gynecology
PROC: 10D00Z1 Extraction of Products of Conception, Low, Open Approach (ICD-10-PCS; principal; 2018-03-19 20:56)
DX: O41.03X0 Oligohydramnios, third trimester, not applicable or unspecified (principal); O72.1 Other immediate postpartum hemorrhage; D62 Acute posthemorrhagic anemia; O36.5930 Maternal care for other known or suspected poor fetal growth, third trimester, not applicable or unspecified; O90.81 Anemia of the puerperium; O99.334 Smoking (tobacco) complicating childbirth; F17.210 Nicotine dependence, cigarettes, uncomplicated; O34.211 Maternal care for low transverse scar from previous cesarean delivery; Z37.0 Single live birth; Z3A.36 36 weeks gestation of pregnancy
CPT/HCPCS: 36415; 74177; 80053; 85007; 85025; 85027; 86850; 86900; 86901; 86920; 88307; 94664

== ENCOUNTER 2018-06-22 14:43 | Emergency (ER) | payer OTHER ==
[~2018-06-22] VITALS: Ht 152.4 cm; Wt 45.4 kg
[~2018-06-22 14:43] MED LIST changes: +CITA10TA12 PO; +DOCU100C37 PO; +FERR-84 PO; +IBUP-844 PO; +OXYC-471 PO
--- OUTSIDE RECORDS SUMMARY | 2018-06-22 14:48 | XMS REPORT | Clinical Summary ---
Author Author [facility] Organization [facility] Address Unknown Phone Unavailable Care Team Providers Care Fiberglass Roller Name Role Phone Emilio Bond MD PCP Source Comments Some departments are not documenting in the electronic medical record. If you do not see the information that you expected, contact Release of Information in the Health Information Management department at [phone] for further assistance in locating additional records.[facility] Allergies Not on File Current Medications Not on file Active Problems Not on file Social History Tobacco Use Types Packs/Day Years Used Date Never Assessed Sex Assigned at Date Recorded Not on file Last Filed Vital Signs Not on file Plan of Treatment Health Maintenance Due Date Last Done Comments PHYSICAL (COMPREHENSIVE) 2004 EXAM HPV VACCINES (1 of 3 - 2008 Female 3-dose series) PERTUSSIS VACCINE 2008 HIV SCREENING 2012 TETANUS VACCINE 2014 CERVICAL CANCER SCREENING 2018 INFLUENZA VACCINE 07/16/2018 Results Not on filefrom Last 3 Months
--- OUTSIDE RECORDS SUMMARY | 2018-06-22 14:49 | XMS REPORT | Continuity of Care Document ---
Author Author [facility] Organization [facility] Address Unknown Phone Unavailable Care Team Providers Care Inspector Health Care Facilities Name Role Phone BETTY GALAVIZ PP Insurance Providers Payer Name Policy Number Subscriber Name Relationship [employer] [id number] Anna Santoro 01 Self / Same As [place] [facility] [id number] Doug Santoro 03 Father Advance Directives Directive Response Recorded Date Advance Directives N 07/25/13 5:46pm Health Care Power of Crew Mess Attendant N 07/25/13 5:46pm Organ Donor N 07/25/13 5:46pm Problems Medical Problem Onset Date Anemia due to blood loss 07/27/13 Breech presentation 07/27/13 High risk due to history of labor Placental abruption 07/27/13 -induced hypertension 07/27/13 Teenage 07/27/13 Family History History Response Recorded Date/Time Hx Family Cancer N 07/25/13 6:07pm Hx Family Cardiac Disorders N 07/25/13 6: 07pm Social History History Response Recorded Date/Time Alcohol Use Denies Use 07/25/13 6:09pm Recreational Drug Use N 07/25/13 6:09pm Recent Foreign Travel N 07/25/13 6:09pm Recent Infectious Disease Exposure N 07/28 6:09pm Hospitalization with Isolation Denies 09/27 4:47pm Sexually Transmitted Disease N 07/25/13 6 :09pm HIV/AIDS N 07/25/13 6:09pm Allergies, Adverse Reactions, Alerts Allergen Type Severity Reaction Last Updated NKANo Known Allergies Allergy Mild 12/06/09 Medications Medication Dose Units Route Sig Qty Days Ferrous Sulfate (Feosol Tab) 325 Mg PO BID WITH MEALS 60 Acetaminophen/Hydrocodone Bitart ([place] 5/325 Mg) 2 Tab PO Q6HR PRN 30 Ibuprofen (Motrin) 600 Mg PO Q6H PRN 40 Docusate Sodium (Colace Cap) 100 Mg PO BID 30 Labetalol HCl (Labetolol) 1 Each PO TID Vits W-Ca,Fe,Fa(<1MG) ( Vitamins) 1 Tab PO DAILY Acetaminophen (Tylenol Tab) 1000 Mg PO Q6H PRN 30 Labetalol HCl (Labetolol) 200 Mg PO BID 60 Docusate Sodium (Colace) 100 Mg PO DAILY Hydrocodone Bitartrate/Ibuprofen (Vicoprofen 200-7.5 Mg Tab) 1 - 2 Each OP Q 4 - 6 HRS PRN 20 Immunizations Name Given Type MMR 07/26/13 A influenza, split (incl. purified surface antigen) 07/26/13 A MMR 07/26/13 A influenza, split (incl. purified surface antigen) 07/26/13 A influenza, split (incl. purified surface antigen) 07/13/13 A Response Recorded Date/Time Status not known Unknown Results Test Date Result Interp. Ref. Range Acetaminophen Screen May 31, 2011 2:20pm NEGATIVE - Activated Partial Thromboplast Time July 25, 2013 11: 40am 29 SEC N 24-35 Alanine Aminotransferase (ALT/SGPT) July 12, 2013 11: 42am 24 U/L L 30-65 Albumin May 31, 2011 11:31am 3.9 G/ DL N 3.4-5.0 Alkaline Phosphatase May 31, 2011 11:31am 271 U/L N 60-350 Amylase Level May 31, 2011 11:31am 51 U/L N 25-115 Aspartate Amino Transf (AST/SGOT) July 12, 2013 11: 42am 33 U/L N 15-37 BUN/Creatinine Ratio May 31, 2011 11:31am 11 - Band Neutrophils July 25, 2013 11:40am 6 % - Basophils # (Auto) July 26, 2013 4:44am 0.0 10^3/uL N 0.0-0.1 Basophils % (Manual) July 25, 2013 11:40am 1 % - Basophils (%) (Auto) July 26, 2013 4:44am 0 % N 0-10 Blood Urea Nitrogen May 31, 2011 11:31am 9 MG/DL N 7-18 Calcium Level May 31, 2011 11:31am 8.5 MG/DL N 8.5-10.1 Carbon Dioxide Level May 31, 2011 11:31am 25 MMOL/L N 21-32 Chloride Level May 31, 2011 11:31am 107 MMOL/L N 101-110 Creatinine July 12, 2013 11:42am 0.4 MG/DL L 0.6-1.3 Eosinophils # (Auto) July 26, 2013 4:44am 0.0 10^3/uL N 0.0-0.3 Eosinophils % (Manual) July 25, 2013 11:40am 0 % - Eosinophils (%) (Auto) July 26, 2013 4:44am 0 % N 0-10 Fibronectin June 14, 2013 9:40pm NEGATIVE - Fibrinogen July 25, 2013 11:40am 331 MG/DL N 221-496 Glucose Level May 31, 2011 11:31am 134 MG/DL H 74-106 Hematocrit July 26, 2013 4:44am 23 % L 35-52 Hemoglobin July 26, 2013 4:44am 7.8 G /DL L 11.5-16.0 Lipase May 31, 2011 11:31am 107 U/L N 73-393 Lymphocytes # (Auto) July 26, 2013 4:44am 1.7 X 10^3 N 1.0-4.0 Lymphocytes % (Manual) July 25, 2013 11:40am 14 % - Lymphocytes (%) (Auto) July 26, 2013 4:44am 12 % N 12-44 Mean Corpuscular Hemoglobin July 26, 2013 4:44am 33 PG N 25-34 Mean Corpuscular Hemoglobin Concent July 26, 2013 4:44am 35 G/DL N 32-36 Mean Corpuscular Volume July 26, 2013 4:44am 94 FL N 80-99 Mean Platelet Volume July 26, 2013 4:44am 10.9 FL H 7.4-10.4 Monocytes # (Auto) July 26, 2013 4:44am 0.9 X 10^3 N 0.0-1.0 Monocytes % (Manual) July 25, 2013 11:40am 4 % - Monocytes (%) (Auto) July 26, 2013 4:44am 6 % N 0-12 Neutrophils # (Auto) July 26, 2013 4:44am 11.4 X 10^3 H 1.8-7.8 Neutrophils % (Manual) July 25, 2013 11:40am 75 % - Neutrophils (%) (Auto) July 26, 2013 4:44am 82 % H 42-75 Platelet Count July 26, 2013 4:44am 157 10^3/uL N 130-400 Potassium Level May 31, 2011 11:31am 3.5 MMOL/L L 3.6-5.0 Prothrombin Time July 25, 2013 11:40am 13.6 SEC N 12.2-14.7 Red Blood Count July 26, 2013 4:44am 2.40 10^6/uL L 4.35-5.85 Red Cell Distribution Width July 26, 2013 4:44am 12.8 % N 10.0-14.5 Serum Test, Qualitative May 31, 2011 11:31am NEGATIVE - Sodium Level May 31, 2011 11:31am 140 MMOL/L N 135-145 Total Bilirubin May 31, 2011 11:31am 0.8 MG/DL N 0.0-1.0 Total Protein May 31, 2011 11:31am 6.8 G/DL N 6.4-8.2 Ur Tricyclic Antidepressants Screen May 31, 2011 2:20pm NEGATIVE - Uric Acid July 12, 2013 11:42am 5.1 MG/DL N 2.6-7.2 Urine Amphetamines Screen May 31, 2011 2:20pm NEGATIVE - Urine Bacteria July 20, 2013 3:40am FEW /HPF H - Urine Barbiturates Screen May 31, 2011 2:20pm NEGATIVE - Urine Benzodiazepines Screen May 31, 2011 2:20pm NEGATIVE - Urine Bilirubin July 20, 2013 3:40am NEGATIVE - Urine Casts July 20, 2013 3:40am NONE /LPF - Urine Clarity July 20, 2013 3:40am SLIGHTLY CLOUDY - Urine Cocaine Screen May 31, 2011 2:20pm NEGATIVE - Urine Color July 20, 2013 3:40am YELLOW - Urine Crystals July 20, 2013 3:40am NONE /LPF - Urine Culture Indicated July 20, 2013 3:40am YES - Urine Glucose (UA) July 20, 2013 3:40am NEGATIVE - Urine Ketones July 20, 2013 3:40am NEGATIVE - Urine Leukocyte Esterase July 20, 2013 3:40am 3+ H - Urine Methamphetamines Screen May 31, 2011 2:20pm NEGATIVE - Urine Mucus July 20, 2013 3:40am NEGATIVE /LPF - Urine Nitrite July 20, 2013 3:40am NEGATIVE - Urine Opiates Screen May 31, 2011 2:20pm NEGATIVE - Urine Phencyclidine Screen May 31, 2011 2:20pm NEGATIVE - Urine Protein July 20, 2013 3:40am 2+ H - Urine RBC July 20, 2013 3:40am NONE / HPF - Urine Specific [place] July 20, 2013 3:40am 1.015 L - Urine Squamous Epithelial Cells July 20, 2013 3:40am 10-25 /HPF H - Urine Total Protein 24 Hour July 21, 2013 3:40am 254.4 MG/24H H 0-149 Urine Total Volume July 21, 2013 3:40am 1325 ML - Urine Urobilinogen July 20, 2013 3:40am NORMAL MG/DL - Urine WBC July 20, 2013 3:40am 25-50 /HPF H - Urine pH July 20, 2013 3:40am 6.5 - White Blood Count July 26, 2013 4:44am 13.9 10^3/uL H 4.3-11.0 Serum Alcohol May 31, 2011 11:31am < 5 MG/DL -5 Glucometer June 16, 2013 5:14pm 105 MG/DL N 70-110 Urine Total Protein mg/dL July 21, 2013 3:40am 19.2 MG/DL H 6-12 Blood Morphology Comment July 25, 2013 11:40am NORMAL - Urine Methadone Screen May 31, 2011 2:20pm NEGATIVE - Urine Cannabinoids Screen May 31, 2011 2:20pm NEGATIVE - Urine RBC (Auto) July 20, 2013 3:40am 1+ H - INR Comment July 25, 2013 11:40am 1.1 N 0.8-1.4 Procedures Procedure Code Date Urine Culture 07/20/13 ARINA Preparation 09/28/09 Encounters Encounter Location Date/Time Discharged Inpatient [facility] 11:30am Departed Emergency Room [facility] 31/08 11:19am
--- OUTSIDE RECORDS SUMMARY | 2018-06-22 14:49 | XMS REPORT | Continuity of Care Document ---
Author Author [facility] Organization [facility] Address Unknown Phone Unavailable Support Name Relationship Address Phone DOUG SANTORO Next Of Kin [address] [place] [address] Insurance Providers Payer Name Policy Number Subscriber Name Relationship [employer] [id number] Anna Santoro 01 Self / Same As Patient Advance Directives Directive Response Recorded Date Advance Directives N 07/20/13 3:42am Health Care Power of Director Of Aviation N 07/20/13 3:42am Organ Donor N 07/20/13 3:42am Problems No Known Problems or Medical conditions. Allergies, Adverse Reactions, Alerts Allergen Type Severity Reaction Last Updated NKANo Known Allergies Allergy Mild 12/06/09 Medications Medication Dose Units Route Sig Qty Days Acetaminophen (Tylenol Tab) 1000 Mg PO Q6H PRN 30 Labetalol HCl (Labetolol) 200 Mg PO BID 60 Docusate Sodium (Colace) 100 Mg PO DAILY Vits W-Ca,Fe,Fa(<1MG) ( Vitamins) 1 Tab PO DAILY Hydrocodone Bitartrate/Ibuprofen (Vicoprofen 200-7.5 Mg Tab) 1 - 2 Each OP Q 4 - 6 HRS PRN 20 Immunizations Name Given Type influenza, split (incl. purified surface antigen) 07/13/13 A Response Recorded Date/Time Status not known Unknown Results Test Date Result Interp. Ref. Range Acetaminophen Screen May 31, 2011 2:20pm NEGATIVE - Alanine Aminotransferase (ALT/SGPT) July 12, 2013 11: 42am 24 U/L L 30-65 Albumin May 31, 2011 11:31am 3.9 G/ DL N 3.4-5.0 Alkaline Phosphatase May 31, 2011 11:31am 271 U/L N 60-350 Amylase Level May 31, 2011 11:31am 51 U/L N 25-115 Aspartate Amino Transf (AST/SGOT) July 12, 2013 11: 42am 33 U/L N 15-37 BUN/Creatinine Ratio May 31, 2011 11:31am 11 - Basophils # (Auto) July 12, 2013 11:42am 0.0 10^3/uL N 0.0-0.1 Basophils (%) (Auto) July 12, 2013 11:42am 0 % N 0-10 Blood Urea Nitrogen May 31, 2011 11:31am 9 MG/DL N 7-18 Calcium Level May 31, 2011 11:31am 8.5 MG/DL N 8.5-10.1 Carbon Dioxide Level May 31, 2011 11:31am 25 MMOL/L N 21-32 Chloride Level May 31, 2011 11:31am 107 MMOL/L N 101-110 Creatinine July 12, 2013 11:42am 0.4 MG/DL L 0.6-1.3 Eosinophils # (Auto) July 12, 2013 11:42am 0.1 10^3/uL N 0.0-0.3 Eosinophils (%) (Auto) July 12, 2013 11:42am 1 % N 0-10 Fibronectin June 14, 2013 9:40pm NEGATIVE - Glucose Level May 31, 2011 11:31am 134 MG/DL H 74-106 Hematocrit July 12, 2013 11:42am 33 % L 35-52 Hemoglobin July 12, 2013 11:42am 11.6 G/DL N 11.5-16.0 Lipase May 31, 2011 11:31am 107 U/L N 73-393 Lymphocytes # (Auto) July 12, 2013 11:42am 2.0 X 10^3 N 1.0-4.0 Lymphocytes (%) (Auto) July 12, 2013 11:42am 18 % N 12-44 Mean Corpuscular Hemoglobin July 12, 2013 11:42am 32 PG N 25-34 Mean Corpuscular Hemoglobin Concent July 12, 2013 11: 42am 35 G/DL N 32-36 Mean Corpuscular Volume July 12, 2013 11:42am 93 FL N 80-99 Mean Platelet Volume July 12, 2013 11:42am 10.6 FL H 7.4-10.4 Monocytes # (Auto) July 12, 2013 11:42am 0.8 X 10^3 N 0.0-1.0 Monocytes (%) (Auto) July 12, 2013 11:42am 7 % N 0-12 Neutrophils # (Auto) July 12, 2013 11:42am 8.0 X 10^3 H 1.8-7.8 Neutrophils (%) (Auto) July 12, 2013 11:42am 73 % N 42-75 Platelet Count July 12, 2013 11:42am 204 10^3/uL N 130-400 Potassium Level May 31, 2011 11:31am 3.5 MMOL/L L 3.6-5.0 Red Blood Count July 12, 2013 11:42am 3.58 10^6/uL L 4.35-5.85 Red Cell Distribution Width July 12, 2013 11:42am 13.2 % N 10.0-14.5 Serum Test, Qualitative May [...] 31, 2011 2:20pm NEGATIVE - Urine Bacteria June 14, 2013 6:05pm TRACE /HPF - Urine Barbiturates Screen May 31, 2011 2:20pm NEGATIVE - Urine Benzodiazepines Screen May 31, 2011 2:20pm NEGATIVE - Urine Bilirubin June 14, 2013 6:05pm NEGATIVE - Urine Casts June 14, 2013 6:05pm NONE /LPF - Urine Clarity June 14, 2013 6:05pm CLEAR - Urine Cocaine Screen May 31, 2011 2:20pm NEGATIVE - Urine Color June 14, 2013 6:05pm YELLOW - Urine Crystals June 14, 2013 6:05pm NONE /LPF - Urine Culture Indicated June 14, 2013 6:05pm NO - Urine Glucose (UA) June 14, 2013 6:05pm NEGATIVE - Urine Ketones June 14, 2013 6:05pm NEGATIVE - Urine Leukocyte Esterase June 14, 2013 6:05pm NEGATIVE - Urine Methamphetamines Screen May 31, 2011 2:20pm NEGATIVE - Urine Mucus June 14, 2013 6:05pm NEGATIVE /LPF - Urine Nitrite June 14, 2013 6:05pm NEGATIVE - Urine Opiates Screen May 31, 2011 2:20pm NEGATIVE - Urine Phencyclidine Screen May 31, 2011 2:20pm NEGATIVE - Urine Protein June 14, 2013 6:05pm NEGATIVE - Urine RBC June 14, 2013 6:05pm 5-10 / HPF H - Urine Specific [place] June 14, 2013 6:05pm 1.020 - Urine Squamous Epithelial Cells June 14, 2013 6:05pm 10-25 /HPF H - Urine Total Protein 24 Hour July 13, 2013 11:50am 204.7 MG/24H H 0-149 Urine Total Volume July 13, 2013 11:50am 2225 ML - Urine Urobilinogen June 14, 2013 6:05pm NORMAL MG/DL - Urine WBC June 14, 2013 6:05pm RARE / HPF - Urine pH June 14, 2013 6:05pm 6.5 - White Blood Count July 12, 2013 11:42am 10.9 10^3/uL N 4.3-11.0 Serum Alcohol May 31, 2011 11:31am < 5 MG/DL -5 Glucometer June 16, 2013 5:14pm 105 MG/DL N 70-110 Urine Total Protein mg/dL July 13, 2013 11:50am 9.2 MG/DL N 6-12 Urine Methadone Screen May 31, 2011 2:20pm NEGATIVE - Urine Cannabinoids Screen May 31, 2011 2:20pm NEGATIVE - Urine RBC (Auto) June 14, 2013 6:05pm 2 + H - Procedures Procedure Code Date Urine Culture 06/14/13 ARINA Preparation 09/28/09 Encounters Encounter Location Date/Time Discharged Inpatient [facility] 10:45am Departed Emergency Room [facility] 31/08 11:19am
--- OUTSIDE RECORDS SUMMARY | 2018-06-22 14:49 | XMS REPORT | Continuity of Care Document ---
Author Author [facility] Organization [facility] Address Unknown Phone Unavailable Care Team Providers Care Show Dog Trainer Name Role Phone GRAHAM STEWART MD PP Insurance Providers Payer Name Policy Number Subscriber Name Relationship [employer] [id number] Doug Santoro 03 Father [employer] [id number] Anna Santoro 01 Self / Same As Patient Advance Directives Directive Response Recorded Date Advance Directives N 06/14/13 6:49pm Problems No Known Problems or Medical conditions. Allergies, Adverse Reactions, Alerts Allergen Type Severity Reaction Last Updated NKANo Known Allergies Allergy Mild 12/06/09 Medications Medication Dose Units Route Sig Qty Days Vits W-Ca,Fe,Fa(<1MG) ( Vitamins) 1 Tab PO DAILY Hydrocodone Bitartrate/Ibuprofen (Vicoprofen 200-7.5 Mg Tab) 1 - 2 Each OP Q 4 - 6 HRS PRN 20 Response Recorded Date/Time Status not known Unknown Results Test Date Result Interp. Ref. Range Acetaminophen Screen May 31, 2011 2:20pm NEGATIVE - Alanine Aminotransferase (ALT/SGPT) May 31, 2011 11:31am 28 U/L L 30-65 Albumin May 31, 2011 11:31am 3.9 G/ DL N 3.4-5.0 Alkaline Phosphatase May 31, 2011 11:31am 271 U/L N 60-350 Amylase Level May 31, 2011 11:31am 51 U/L N 25-115 Aspartate Amino Transf (AST/SGOT) May 31, 2011 11:31am 20 U/L N 15-37 BUN/Creatinine Ratio May 31, 2011 11:31am 11 - Blood Urea Nitrogen May 31, 2011 11:31am 9 MG/DL N 7-18 Calcium Level May 31, 2011 11:31am 8.5 MG/DL N 8.5-10.1 Carbon Dioxide Level May 31, 2011 11:31am 25 MMOL/L N 21-32 Chloride Level May 31, 2011 11:31am 107 MMOL/L N 101-110 Creatinine May 31, 2011 11:31am 0.8 MG/DL N 0.6-1.3 Glucose Level May 31, 2011 11:31am 134 MG/DL H 74-106 Hematocrit May 31, 2011 11:31am 37 % N 35-52 Hemoglobin May 31, 2011 11:31am 13.1 G/DL N 11.5-16.0 Lipase May 31, 2011 11:31am 107 U/L N 73-393 Mean Corpuscular Hemoglobin May 31, 2011 11:31am 32 PG N 25-34 Mean Corpuscular Hemoglobin Concent May 31, 2011 11:31am 36 G/DL N 32-36 Mean Corpuscular Volume May 31, 2011 11:31am 89 FL N 77-95 Mean Platelet Volume May 31, 2011 11:31am 9.8 FL N 7.4-10.4 Platelet Count May 31, 2011 11:31am 270 10^3/uL N 130-400 Potassium Level May 31, 2011 11:31am 3.5 MMOL/L L 3.6-5.0 Red Blood Count May 31, 2011 11:31am 4.09 10^6/uL N 3.79-5.25 Red Cell Distribution Width May 31, 2011 11:31am 12.6 % N 10.0-14.5 Serum Test, Qualitative May 31, 2011 11:31am NEGATIVE - Sodium Level May 31, 2011 11:31am 140 MMOL/L N 135-145 Total Bilirubin May 31, 2011 11:31am 0.8 MG/DL N 0.0-1.0 Total Protein May 31, 2011 11:31am 6.8 G/DL N 6.4-8.2 Ur Tricyclic Antidepressants Screen May 31, 2011 2:20pm NEGATIVE - Urine Amphetamines Screen May 31, 2011 2:20pm NEGATIVE - Urine Bacteria May 31, 2011 2:20pm NEGATIVE - Urine Barbiturates Screen May 31, 2011 2:20pm NEGATIVE - Urine Benzodiazepines Screen May 31, 2011 2:20pm NEGATIVE - Urine Bilirubin May 31, 2011 2:20pm NEGATIVE - Urine Casts May 31, 2011 2:20pm NONE - Urine Clarity May 31, 2011 2:20pm CLEAR - Urine Cocaine Screen May 31, 2011 2:20pm NEGATIVE - Urine Color May 31, 2011 2:20pm YELLOW - Urine Crystals May 31, 2011 2:20pm NONE - Urine Culture Indicated May 31, 2011 2:20pm NO - Urine Glucose (UA) May 31, 2011 2:20pm NEGATIVE - Urine Ketones May 31, 2011 2:20pm NEGATIVE - Urine Leukocyte Esterase May 31, 2011 2:20pm NEGATIVE - Urine Methamphetamines Screen May 31, 2011 2:20pm NEGATIVE - Urine Mucus May 31, 2011 2:20pm NEGATIVE - Urine Nitrite May 31, 2011 2:20pm NEGATIVE - Urine Opiates Screen May 31, 2011 2:20pm NEGATIVE - Urine Phencyclidine Screen May 31, 2011 2:20pm NEGATIVE - Urine Protein May 31, 2011 2:20pm NEGATIVE - Urine RBC May 31, 2011 2:20pm NONE / HPF - Urine Specific [place] May 31, 2011 2:20pm 1.025 H - Urine Squamous Epithelial Cells May 31, 2011 2:20pm 2-5 - Urine Urobilinogen May 31, 2011 2:20pm NORMAL MG/DL - Urine WBC May 31, 2011 2:20pm NONE / HPF - Urine pH May 31, 2011 2:20pm 5.0 - White Blood Count May 31, 2011 11:31am 11.2 10^3/uL H 4.3-11.0 Serum Alcohol May 31, 2011 11:31am < 5 MG/DL -5 Urine Methadone Screen May 31, 2011 2:20pm NEGATIVE - Urine Cannabinoids Screen May 31, 2011 2:20pm NEGATIVE - Urine RBC (Auto) May 31, 2011 2:20pm NEGATIVE - Procedures Procedure Code Date ARINA Preparation 09/28/09 Encounters Encounter Location Date/Time Departed Emergency Room [facility] 31/08 11:19am
--- OUTSIDE RECORDS SUMMARY | 2018-06-22 14:50 | XMS REPORT | Continuity of Care Document ---
Author Author [facility] Organization [facility] Address Unknown Phone Unavailable Care Team Providers Care Operational Risk Consultant Name Role Phone GRAHAM STEWART MD PP Insurance Providers Payer Name Policy Number Subscriber Name Relationship [employer] [id number] Anna Santoro 01 Self / Same As Patient Advance Directives Directive Response Recorded Date Advance Directives N 06/15/13 10:29pm Organ Donor N 06/15/13 10:29pm Problems No Known Problems or Medical conditions. [...] 31, 2011 11:31am 0.8 MG/DL N 0.6-1.3 Fibronectin June 14, 2013 9:40pm NEGATIVE - [...] 5-10 / HPF H - Urine Specific [place] June 14, 2013 6:05pm 1.020 - Urine Squamous Epithelial Cells June 14, 2013 6:05pm 10-25 /HPF H - Urine Urobilinogen June 14, 2013 6:05pm NORMAL MG/DL - Urine WBC June 14, 2013 6:05pm RARE / HPF - Urine pH June 14, 2013 6:05pm 6.5 - White Blood Count May 31, 2011 [...]
--- OUTSIDE RECORDS SUMMARY | 2018-06-22 14:50 | XMS REPORT | Continuity of Care Document ---
Author Author [facility] Organization [facility] Address Unknown Phone Unavailable Care Team Providers Care Data Software Engineer Name Role Phone GRAHAM STEWART MD PP Insurance Providers Payer Name Policy Number Subscriber Name Relationship [employer] [id number] Anna Santoro Self / Same As Patient Advance Directives Directive Response Recorded Date Advance Directives N 06/16/13 4:40pm Organ Donor N 06/16/13 4:40pm Problems No Known Problems or Medical conditions. Allergies, Adverse Reactions, Alerts Allergen Type Severity Reaction Last Updated NKANo Known Allergies Allergy Mild 12/06/09 Medications Medication Dose Units Route Sig Qty Days Docusate Sodium (Colace) 100 Mg PO DAILY [...] 5-10 / HPF H - Urine Specific [place] June 14, 2013 6:05pm 1.020 - Urine [...] Location Date/Time Discharged Inpatient [facility] 4:39pm Departed Emergency Room [facility] 31/08 11:19am
--- OUTSIDE RECORDS SUMMARY | 2018-06-22 14:50 | XMS REPORT | Continuity of Care Document ---
Author Author [facility] Organization [facility] Address Unknown Phone Unavailable Support Name Relationship Address Phone DOUG SANTORO Next Of Kin [address] [place] [address] Insurance Providers Payer Name Policy Number Subscriber Name Relationship [employer] [id number] Anna Santoro 01 Self / Same As Patient Advance Directives Directive Response Recorded Date Advance Directives N 07/12/13 10:45am Health Care Power of Herd Tester N 07/12/13 10:45am Organ Donor N 06/16/13 4:40pm Problems No [...] 5-10 / HPF H - Urine Specific [place] June 14, 2013 6:05pm 1.020 - Urine [...] 2013 5:14pm 105 MG/DL N 70-110 Urine Methadone Screen May 31, 2011 2:20pm NEGATIVE - Urine Cannabinoids Screen May 31, 2011 2:20pm NEGATIVE - Urine RBC (Auto) June 14, 2013 6:05pm 2 + H - Procedures Procedure Code Date Urine Culture 06/14/13 ARINA Preparation 09/28/09 Encounters Encounter Location Date/Time Discharged Inpatient [facility] 11:06am Departed Emergency Room [facility] 31/08 11:19am
--- OUTSIDE RECORDS SUMMARY | 2018-06-22 14:50 | XMS REPORT | Continuity of Care Document ---
Author Author [facility] Organization [facility] Address Unknown Phone Unavailable Care Team Providers Care Correction Officer Supervisor Name Role Phone GRAHAM STEWART MD PP Insurance Providers Payer Name Policy Number Subscriber Name Relationship [employer] [id number] Anna Santoro 01 Self / Same As [...] Recorded Date/Time Status not known Unknown Results No Known Relevant Diagnostic Tests, Laboratory Data and/or Discharge Summary. Encounters Encounter Location Date/Time Discharged Inpatient [facility] 4:39pm Departed Emergency Room [facility] 31/08 11:19am
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
[2018-06-22] MEDS ORDERED: NS IV 1000 ML 1,000 ML IV ONE (15:01)
[2018-06-22 15:11] LABS: BASOPHILS % (AUTO) 0 % (0-10); EOSINOPHILS # (AUTO) 0.1 10^3/uL (0.0-0.3); EOSINOPHILS % (AUTO) 1 % (0-10); HEMATOCRIT 42 % (35-52); HEMOGLOBIN 14.8 G/DL (11.5-16.0); LYMPHOCYTES # (AUTO) 1.8 X 10^3 (1.0-4.0); LYMPHOCYTES % (AUTO) 18 % (12-44); MEAN CORPUSCULAR HEMOGLOBIN 31 PG (25-34); MEAN CORPUSCULAR HGB CONC 35 G/DL (32-36); MEAN CORPUSCULAR VOLUME 89 FL (80-99); MEAN PLATELET VOLUME 10.1 FL (7.4-10.4); MONOCYTES # (AUTO) 0.5 X 10^3 (0.0-1.0); MONOCYTES % (AUTO) 6 % (0-12); NEUTROPHILS # (AUTO) 7.3 X 10^3 (1.8-7.8); NEUTROPHILS % (AUTO) 75 % (42-75); PLATELET COUNT 342 10^3/uL (130-400); RED BLOOD COUNT 4.77 10^6/uL (4.35-5.85); RED CELL DISTRIBUTION WIDTH 13.2 % (10.0-14.5); WHITE BLOOD COUNT 9.7 10^3/uL (4.3-11.0)
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
[2018-06-22 15:30] LABS: BILIRUBIN,URINE NEGATIVE (NEGATIVE); CLARITY,URINE SLIGHTLY CLOUDY; COLOR,URINE YELLOW; GLUCOSE, URINE (UA) NEGATIVE (NEGATIVE); KETONES,URINE NEGATIVE (NEGATIVE); LEUKOCYTE ESTERASE ,URINE 3+ (NEGATIVE); NITRITE,URINE NEGATIVE (NEGATIVE); PH,URINE 6 (5-9); PROTEIN,URINE 2+ (NEGATIVE); UROBILINOGEN,URINE NORMAL (NORMAL)
[2018-06-22 15:33] LABS: ALANINE AMINOTRANSFERASE 15 U/L (0-55); ALBUMIN 4.9 GM/DL (3.2-4.5); ALKALINE PHOSPHATASE 92 U/L (40-136); BILIRUBIN,TOTAL 0.8 MG/DL (0.1-1.0); BUN/CREATININE RATIO 12; CALCIUM 10.7 MG/DL (8.5-10.1); CARBON DIOXIDE 20 MMOL/L (21-32); CHLORIDE 106 MMOL/L (98-107); CREATININE SERUM 0.94 MG/DL (0.60-1.30); GFR ESTIMATED > 60; GLUCOSE 91 MG/DL (70-105); MAGNESIUM 2.2 MG/DL (1.8-2.4); POTASSIUM 3.6 MMOL/L (3.6-5.0); SALICYLATE < 5.0 MG/DL (5.0-20.0); SODIUM 138 MMOL/L (135-145); TOTAL PROTEIN 7.8 GM/DL (6.4-8.2)
[2018-06-22 15:40] LABS: BACTERIA,URINE MODERATE /HPF; WBC,URINE >100 /HPF
[2018-06-22 15:40] LABS: ACETAMINOPHEN < 10 UG/ML (10-30)
[2018-06-22 15:44] LABS: AMPHETAMINE SCREEN, URINE NEGATIVE (NEGATIVE); BARBITURATE SCREEN URINE NEGATIVE (NEGATIVE); BENZODIAZEPINES SCREEN URINE NEGATIVE (NEGATIVE); CANNABINOID SCREEN, URINE POSITIVE (NEGATIVE); COCAINE SCREEN URINE NEGATIVE (NEGATIVE); METHADONE STAT NEGATIVE (NEGATIVE); METHAMPHETAMINE SCREEN URINE S NEGATIVE (NEGATIVE); OPIATE SCREEN URINE NEGATIVE (NEGATIVE); OXYCODONE STAT NEGATIVE (NEGATIVE); PROPOXYPHENE STAT NEGATIVE (NEGATIVE); TRICYCLIC ANTIDEPRESSANTS SCRE NEGATIVE (NEGATIVE)
[2018-06-22 15:52] LABS: TSH (THYROID ANALYZER) 0.25 UIU/ML (0.35-4.94)
[2018-06-22] MEDS ORDERED: LACTATED RINGERS 1,000 ML IV ONE (16:26)
[2018-06-22 17:01] LABS: FREE T4 (FREE THYROXINE) 1.31 NG/DL (0.70-1.48)
[2018-06-22 18:06] VITALS: BP 138/87
== END 2018-06-22 18:26 | disposition short-term general hospital (02) ==
LOC: EDUNIT# 14:43 → ER 14:44
DX: T39.312A Poisoning by propionic acid derivatives, intentional self-harm, initial encounter (principal); F32.9 Major depressive disorder, single episode, unspecified; F19.10 Other psychoactive substance abuse, uncomplicated; F17.210 Nicotine dependence, cigarettes, uncomplicated; Z98.890 Other specified postprocedural states; Z90.89 Acquired absence of other organs; Z88.0 Allergy status to penicillin; Z88.8 Allergy status to other drugs, medicaments and biological substances; Z79.02 Long term (current) use of antithrombotics/antiplatelets
CPT/HCPCS: 36415; 80053; 80306; 80320; 80329; 81000; 83735; 84439; 84443; 84703; 85025; 87077; 87088; 93005; 93041; 96360; 96361

== ENCOUNTER 2019-01-23 17:03 | Emergency (ER) | payer OTHER ==
[~2019-01-23] VITALS: Ht 157.5 cm; Wt 52.2 kg
[~2019-01-23 17:03] MED LIST changes: +METR-145 PO; -METR500T21 PO
--- NOTE | 2019-01-23 17:32 | ED GU-Female ---
General Stated Complaint: ABD PAIN,BACK PAIN Source: patient Exam Limitations: no limitations History of Present Illness Date Seen by Provider: Jan 23, 2019 Time Seen by Provider: 17:31 Initial Comments To ER with left flank and bilateral lower quadrant abdominal pain or the past 2- 3 days. Denies nausea vomiting fevers or chills. No bowel changes. No dysuria. States that"it feels as if something needs to come out of that area but isn't ".She is on a Depo-Provera injection most recently in November, scheduled for another one in February. Timing/Duration: constant Severity/Quality: severe Location: suprapubic Radiation: none Activities at Onset: none Prior Genitourinary Problems: none Associated Symptoms: denies symptoms Allergies and Home Medications Allergies Coded Allergies: amoxicillin (Verified Allergy, Mild, 03/21/18) clavulanic acid (Verified Allergy, Mild, 03/21/18) Home Medications Citalopram Hydrobromide 10 Mg Tablet, 10 MG PO DAILY Prescribed by: RASHMI BRYAN on 03/22/18 1602 Docusate Sodium 100 Mg Capsule, 100 MG PO BID PRN for CONSTIPATION-1ST LINE Prescribed by: BETTY GALAVIZ on 03/19/18 2100 Ferrous Sulfate 325 Mg Tablet, 325 MG PO BID Prescribed by: RASHMI BRYAN on 03/22/18 1625 Hydrocodone/Acetaminophen 1 Each Tablet, 1 EACH PO Q4H PRN for PAIN-MODERATE Prescribed by: SKYLA MALIN on 01/23/19 190 Ibuprofen 600 Mg Tablet, 600 MG PO Q6H Prescribed by: BETTY GALAVIZ on 03/19/18 2100 Ibuprofen 800 Mg Tablet, 800 MG PO Q8H PRN for PAIN-MILD Prescribed by: SKYLA MALIN on 01/23/19 190 Ondansetron 8 Mg Tab.rapdis, 8 MG PO Q6H PRN for NAUSEA/VOMITING Prescribed by: SKYLA MALIN on 01/23/19 190 Oxycodone HCl/Acetaminophen 1 Each Tablet, 1-2 TAB PO Q4H PRN for PAIN-MODERATE TO SEVERE Prescribed by: RASHMI BRYAN on 03/22/18 1200 Vit/Iron Fumarate/FA 1 Each Tablet, 1 EACH PO DAILY, (Reported) Patient Home Medication List Home Medication List Reviewed: Yes Review of Systems Review of Systems Constitutional: see HPI EENTM: see HPI Respiratory: no symptoms reported Cardiovascular: no symptoms reported Genitourinary: see HPI Musculoskeletal: no symptoms reported Skin: no symptoms reported Psychiatric/Neurological: No Symptoms Reported Endocrine: No Symptoms Reported Past Xfpjtmk-Igjvik-Fbobjm Hx Patient Social History Type Used: Cigarettes 2nd Hand Smoke Exposure: No Recent Foreign Travel: No Contact w/Someone Who Travel: No Recent Hopitalizations: No Immunizations Up To Date Tetanus Booster (TDap): Unknown PED Vaccines UTD: Yes Seasonal Allergies Seasonal Allergies: No Past Medical History Surgeries: Yes ( X 2L RIGHT FOREARM FX/ ORIF) Section, Orthopedic, Tonsillectomy Respiratory: No Cardiac: No Neurological: No Reproductive Disorders: No Female Reproductive Disorders: Denies Sexually Transmitted Disease: No HIV/AIDS: No Genitourinary: No Gastrointestinal: No Musculoskeletal: Yes (RIGHT FOREARM FX/ORIF-' nerve damage' PER PT) Fractures Endocrine: No HEENT: No Loss of Vision: Denies Hearing Impairment: Denies Cancer: No Psychosocial: No Integumentary: Yes Eczema Blood Disorders: No Adverse Reaction/Blood Tranf: No Family Medical History No Pertinent Family Hx Physical Exam Vital Signs Vital Signs - First Documented 01/23/19 17:18 Temp 97.8 Pulse 91 Resp 18 B/P (MAP) 126/82 (97) O2 Delivery Room Air Capillary Refill : Height, Weight, BMI Height: 5'0" Weight: 100lbs. 4.0oz. 45.270120ra; 21.6 BMI Method:Stated General Appearance: WD/WN, no apparent distress HEENT: PERRL/EOMI, normal ENT inspection Neck: non-tender, full range of motion Respiratory: no respiratory distress, no accessory muscle use Gastrointestinal: normal bowel sounds, non tender, soft; No distended, No guarding, No tenderness Pelvic: other (there is cervical motion tenderness without discharge. Patient states that she has always had some pain since her to the point that she is unable to have intercourse due to the pain.She has not followed up with gynecology for this. Pelvic exam done with Camila RN at the bedside) Back: No CVA tenderness (R), No CVA tenderness (L) Extremities: normal range of motion, non-tender Neurologic/Psychiatric: alert, normal mood/affect Skin: normal color, warm/dry Progress/Results/Core Measures Suspected Sepsis SIRS Temperature: Pulse: Respiratory Rate: Blood Pressure / Mean: Results/Orders Lab Results Laboratory Tests Test 01/23/19 17:36 01/23/19 18:02 Range/Units Urine Color YELLOW Urine Clarity CLEAR Urine pH 6 5-9 Urine Specific [place] 1.020 1.016-1.022 Urine Protein NEGATIVE NEGATIVE Urine Glucose (UA) NEGATIVE NEGATIVE Urine Ketones NEGATIVE NEGATIVE Urine Nitrite NEGATIVE NEGATIVE Urine Bilirubin NEGATIVE NEGATIVE Urine Urobilinogen 1 NORMAL MG/DL Urine Leukocyte Esterase 1+ H NEGATIVE Urine RBC (Auto) 5+ H NEGATIVE Urine RBC 50-100 H /HPF Urine WBC 2-5 /HPF Urine Squamous Epithelial Cells 10-25 H /HPF Urine Crystals NONE /LPF Urine Bacteria FEW H /HPF Urine Casts NONE /LPF Urine Mucus MODERATE H /LPF Urine Culture Indicated NO My Orders Orders - SKYLA MALIN APRN Ua Culture If Indicated (01/23/19 17:06) Urine Bedside (01/23/19 17:06) Wet Prep (01/23/19 17:29) Neisseria Gonorrhea Swab (01/23/19 17:29) Genital Culture (01/23/19 17:29) Chlamydia Trachomatis Swab (01/23/19 17:29) Ct Abd/Pelvis Wo(Kidney Stone) (01/23/19 18:03) Ibuprofen Tablet (Motrin Tablet) (01/23/19 19:15) Rx-Hydrocodone/Apap 5-325 Mg (Rx-Vicodin (01/23/19 19:15) Vital Signs/I&O 01/23/19 17:18 Temp 97.8 Pulse 91 Resp 18 B/P (MAP) 126/82 (97) O2 Delivery Room Air Capillary Refill : Diagnostic Imaging Diagonstic Imaging: CT Comments NAME: RAUDEL [facility] REC#: [id number] PT STATUS: REG ER : 1995 PHYSICIAN: SKYLA MALIN APRN ADMIT DATE: 01/23/19/ER Draft Date of Exam:01/23/19 CT ABD/PELVIS WO(KIDNEY STONE) CLINICAL INDICATION: Patient with anterior flank and posterior pain with hematuria in emergency room. EXAM: CT scan of the abdomen and pelvis performed without IV contrast using CT protocol. Coronal and sagittal reformatted images are created. COMPARISON: CT scan of the abdomen and pelvis with contrast dated 03/20/2018. FINDINGS: There are mild patchy airspace opacities in the left lung base which may represent mild infection or inflammatory process. Bones show no significant abnormality. The liver, spleen, pancreas, gallbladder, and adrenal glands are unremarkable. There is a 3 mm calcification seen in the expected region of the left UVJ region. This was not seen on the prior study. There is no hydronephrosis. There is a 2 mm nonobstructive stone involving the inferior pole of the right kidney. Otherwise, both kidneys are unremarkable. The small bowel, colon, and stomach show no significant abnormality. Visualized portion the appendix is unremarkable. There is no intra-abdominal free air or free fluid. The visualized portions of the uterus and adnexal structures are unremarkable. Bladder shows small amount of fluid and otherwise unremarkable. Extra-abdominal and extrapelvic soft tissue structures are unremarkable. There is interval evolution of the previously seen gravid-appearing uterus, subcutaneous air, edema, and blood involving the anterior abdominal wall and pelvis region. IMPRESSION: 1: There is a 3 mm stone overlying the expected region of the left UVJ. There is no hydronephrosis. 2: There is a nonobstructive stone involving the right kidney. 3: The remainder of this exam shows no other significant abnormality. Dictated on workstation # [id number] Dict: 01/23/19 1835 Trans: 01/23/19 1850 [id number] [id number] Interpreted by: HUI VALDEZ MD Electronically signed by: Departure Impression Primary Impression: Left ureteral calculus Disposition: HOME, SELF-CARE Condition: Stable Departure-Patient Inst. Decision time for Depature: 19:02 Referrals: NO,LOCAL PHYSICIAN (PCP/Family) Primary Care Physician Patient Instructions: Kidney Stones (DC) Add. Discharge Instructions: 1. Increase her fluid intake. Pain medication as directed. Return to ER for any high fevers or uncontrollable vomiting, uncontrollable pain or other concerns. Scripts Ondansetron (Ondansetron Odt) 8 Mg Tab.rapdis 8 MG PO Q6H PRN for NAUSEA/VOMITING, #10 TAB Prov: SKYLA MALIN [employer]OR WORKER 01/23/19 Ibuprofen (Ibuprofen) 800 Mg Tablet 800 MG PO Q8H PRN for PAIN-MILD, #30 TAB Prov: SKYLA MALIN APRN 01/23/19 Hydrocodone/Acetaminophen ([place] 5-325 Tablet) 1 Each Tablet 1 EACH PO Q4H PRN for PAIN-MODERATE MDD 10, #20 TAB Prov: SKYLA MALIN APRN 01/23/19 Work/School Note: Work Release Form Date Seen in the Emergency Department: Jan 23, 2019 Return to Work: Jan 26, 2019 SKYLA MALIN APRN Jan 23, 2019 17:32
[2019-01-23 17:42] LABS: BILIRUBIN,URINE NEGATIVE (NEGATIVE); CLARITY,URINE CLEAR; COLOR,URINE YELLOW; GLUCOSE, URINE (UA) NEGATIVE (NEGATIVE); KETONES,URINE NEGATIVE (NEGATIVE); LEUKOCYTE ESTERASE ,URINE 1+ (NEGATIVE); NITRITE,URINE NEGATIVE (NEGATIVE); PH,URINE 6 (5-9); PROTEIN,URINE NEGATIVE (NEGATIVE); UROBILINOGEN,URINE 1 MG/DL (NORMAL)
[2019-01-23 17:52] LABS: BACTERIA,URINE FEW /HPF; RBC,URINE 50-100 /HPF
--- NOTE | 2019-01-23 18:50 | Diagnostic Imaging Report ---
CLINICAL INDICATION: Patient with anterior flank and posterior pain with hematuria in emergency room. EXAM: CT scan of the abdomen and pelvis performed without IV contrast using CT protocol. Coronal and sagittal reformatted images are created. COMPARISON: CT scan of the abdomen and pelvis with contrast dated 03/20/2018. FINDINGS: There are mild patchy airspace opacities in the left lung base which may represent mild infection or inflammatory process. Bones show no significant abnormality. The liver, spleen, pancreas, gallbladder, and adrenal glands are unremarkable. There is a 3 mm calcification seen in the expected region of the left UVJ region. This was not seen on the prior study. There is no hydronephrosis. There is a 2 mm nonobstructive stone involving the inferior pole of the right kidney. Otherwise, both kidneys are unremarkable. The small bowel, colon, and stomach show no significant abnormality. Visualized portion the appendix is unremarkable. There is no intra-abdominal free air or free fluid. The visualized portions of the uterus and adnexal structures are unremarkable. Bladder shows small amount of fluid and otherwise unremarkable. Extra-abdominal and extrapelvic soft tissue structures are unremarkable. There is interval evolution of the previously seen gravid-appearing uterus, subcutaneous air, edema, and blood involving the anterior abdominal wall and pelvis region. IMPRESSION: 1: There is a 3 mm stone overlying the expected region of the left UVJ. There is no hydronephrosis. 2: There is a nonobstructive stone involving the right kidney. 3: The remainder of this exam shows no other significant abnormality. Dictated by: Dictated on workstation # [id number]
[2019-01-23] MEDS ORDERED: HYDR-4226 PO (19:04)
[2019-01-23] MEDS ORDERED: IBUP-1780 PO (19:04)
[2019-01-23] MEDS ORDERED: ONDA8TAB13 PO (19:04)
[2019-01-23] MEDS ORDERED: IBUPROFEN 800 MG (MOTRIN) TAB PO ONE (19:15)
[2019-01-23] MEDS ORDERED: RX-HYDROCODONE/APAP 5/325 MG #4 TAB PK PO PRN (19:15)
[2019-01-23 19:35] VITALS: BP 141/101
== END 2019-01-23 19:35 | disposition home or self-care (01) ==
LOC: EDUNIT# 17:03 → ER 17:05
DX: N20.2 Calculus of kidney with calculus of ureter (principal); Z88.0 Allergy status to penicillin; Z98.890 Other specified postprocedural states; Z90.89 Acquired absence of other organs
CPT/HCPCS: 36415; 74176; 81000; 84703; 87070; 87205; 87210; 87491; 87591

== ENCOUNTER 2019-07-10 09:12 | Emergency (ER) | payer MEDICAID, OTHER ==
[~2019-07-10] VITALS: Ht 157 cm; Wt 50.0 kg
[~2019-07-10 09:12] MED LIST changes: +HYDR-4226 PO; +IBUP-1780 PO; +ONDA8TAB13 PO
[2019-07-10] MEDS ORDERED: fentaNYL INJECTION 100 MCG/2 ML AMP IVP STA (09:29)
[2019-07-10] MEDS ORDERED: KETOROLAC 30 MG/ML VIAL IVP STA (09:29)
[2019-07-10] MEDS ORDERED: NS IV 1000 ML 1,000 ML IV SCH (09:29)
[2019-07-10] MEDS ORDERED: ONDANSETRON 4 MG/2 ML (SDV) Z0FRAN IVP ONE (09:30)
[2019-07-10 09:42] LABS: BILIRUBIN,URINE NEGATIVE (NEGATIVE); CLARITY,URINE VERY CLOUDY; COLOR,URINE RED; GLUCOSE, URINE (UA) NEGATIVE (NEGATIVE); KETONES,URINE 1+ (NEGATIVE); LEUKOCYTE ESTERASE ,URINE 3+ (NEGATIVE); NITRITE,URINE NEGATIVE (NEGATIVE); PH,URINE 6.5 (5-9); PROTEIN,URINE 4+ (NEGATIVE); UROBILINOGEN,URINE NORMAL (NORMAL)
[2019-07-10 09:43] LABS: BASOPHILS % (AUTO) 0 % (0-10); EOSINOPHILS # (AUTO) 0.2 10^3/uL (0.0-0.3); EOSINOPHILS % (AUTO) 2 % (0-10); HEMATOCRIT 40 % (35-52); HEMOGLOBIN 13.4 G/DL (11.5-16.0); LYMPHOCYTES # (AUTO) 1.6 X 10^3 (1.0-4.0); LYMPHOCYTES % (AUTO) 16 % (12-44); MEAN CORPUSCULAR HEMOGLOBIN 31 PG (25-34); MEAN CORPUSCULAR HGB CONC 33 G/DL (32-36); MEAN CORPUSCULAR VOLUME 92 FL (80-99); MEAN PLATELET VOLUME 9.9 FL (7.4-10.4); MONOCYTES # (AUTO) 0.6 X 10^3 (0.0-1.0); MONOCYTES % (AUTO) 6 % (0-12); NEUTROPHILS # (AUTO) 7.5 X 10^3 (1.8-7.8); NEUTROPHILS % (AUTO) 76 % (42-75); PLATELET COUNT 270 10^3/uL (130-400); RED CELL DISTRIBUTION WIDTH 13.4 % (10.0-14.5); WHITE BLOOD COUNT 9.8 10^3/uL (4.3-11.0)
--- NOTE | 2019-07-10 09:56 | ED GU-Female ---
General Chief Complaint: - Urinary Stated Complaint: LOWER BACK PAIN;PAIN WITH URINATION Nursing Triage Note: PT TO ROOM 9 PT CO OF R FLANK PAIN, PT STATES STARTED HAVING UTI SX A WEEK AGO, STATES STARTED NOTICING BLOOD ON MONDAY. HX KIDNEY STONE Nursing Sepsis Screen: No Definite Risk Source: patient Exam Limitations: no limitations History of Present Illness Date Seen by Provider: Jul 10, 2019 Time Seen by Provider: 09:36 Initial Comments Here with report of right flank pain and urinary tract issues including blood in her urine. Onset about a week ago but worsened and today noted blood clots and increased pain. Also notes suprapubic fullness. Denies fever or chills. Denies diarrhea. Did have some nausea and vomiting earlier today with nausea continuing now. She only vomited once and states that it was more like gagging. Does have history of previous kidney stones on the right. Timing/Duration: week, getting worse Severity/Quality: mild, aching, full Location: right flank Radiation: suprapubic Activities at Onset: none Associated Symptoms: abdominal pain, dysuria; No fever/chills, No loss of bladder control; lower back pain, nausea/vomiting; No urinary frequency Allergies and Home Medications Allergies Coded Allergies: amoxicillin (Verified Allergy, Mild, 03/21/18) clavulanic acid (Verified Allergy, Mild, 03/21/18) Home Medications Cefdinir 300 Mg Capsule, 300 MG PO BID Prescribed by: MERRILL GRAHAM on 07/10/19 1158 Citalopram Hydrobromide 10 Mg Tablet, 10 MG PO DAILY Prescribed by: RASHMI BRYAN on 03/22/18 1602 Docusate Sodium 100 Mg Capsule, 100 MG PO BID PRN for CONSTIPATION-1ST LINE Prescribed by: BETTY GALAVIZ on 03/19/18 2100 Ferrous Sulfate 325 Mg Tablet, 325 MG PO BID Prescribed by: RASHMI BRYAN on 03/22/18 1625 Hydrocodone/Acetaminophen 1 Each Tablet, 1 EACH PO Q4H PRN for PAIN-MODERATE Prescribed by: SKYLA MALIN on 01/23/19 190 Ibuprofen 600 Mg Tablet, 600 MG PO Q6H Prescribed by: BETTY GALAVIZ on 03/19/18 2100 Ibuprofen 800 Mg Tablet, 800 MG PO Q8H PRN for PAIN-MILD Prescribed by: SKYLA MALIN on 01/23/191903 Ondansetron 8 Mg Tab.rapdis, 8 MG PO Q6H PRN for NAUSEA/VOMITING Prescribed by: SKYLA MALIN on 01/23/191903 Oxycodone HCl/Acetaminophen 1 Each Tablet, 1-2 TAB PO Q4H PRN for PAIN-MODERATE TO SEVERE Prescribed by: RASHMI BRYAN on 03/22/18 1200 Vit/Iron Fumarate/FA 1 Each Tablet, 1 EACH PO DAILY, (Reported) Patient Home Medication List Home Medication List Reviewed: Yes Review of Systems Review of Systems Constitutional: see HPI; No chills, No fever EENTM: no symptoms reported Respiratory: no symptoms reported Cardiovascular: no symptoms reported Gastrointestinal: see HPI Genitourinary: see HPI : No Musculoskeletal: No muscle pain, No neck pain Skin: no symptoms reported Psychiatric/Neurological: No Symptoms Reported All Other Systemes Reviewed Negative Unless Noted: Yes Past Lbufiyk-Mnsbog-Czcgjn Hx Past Med/Social Hx: Reviewed Nursing Past Med/Soc Hx Patient Social History Alcohol Use: Denies Use Recreational Drug Use: Yes (POT) Smoking Status: Current Everyday Smoker Type Used: Cigarettes 2nd Hand Smoke Exposure: No Recent Foreign Travel: No Contact w/Someone Who Travel: No Recent Infectious Disease Expo: No Recent Hopitalizations: No Immunizations Up To Date Tetanus Booster (TDap): Unknown PED Vaccines UTD: Yes Seasonal Allergies Seasonal Allergies: No Past Medical History Surgeries: Yes ( X 2L RIGHT FOREARM FX/ ORIF) Section, Orthopedic, Tonsillectomy Respiratory: No Cardiac: No Neurological: No : No (DEPO SHOT) Reproductive Disorders: No 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 Sexually Transmitted Disease: No HIV/AIDS: No Genitourinary: No Gastrointestinal: No Musculoskeletal: Yes (RIGHT FOREARM FX/ORIF-' nerve damage' PER PT) Fractures Endocrine: No HEENT: No Loss of Vision: Denies Hearing Impairment: Denies Cancer: No Psychosocial: No Integumentary: Yes Eczema Blood Disorders: No Adverse Reaction/Blood Tranf: No Family Medical History Reviewed Nursing Family Hx No Pertinent Family Hx Physical Exam Vital Signs Vital Signs - First Documented 07/10/19 09:23 Temp 36.3 Pulse 85 Resp 18 B/P (MAP) 135/90 (105) Pulse Ox 99 Capillary Refill : Less Than 3 Seconds Height, Weight, BMI Height: 5'2.00" Weight: 115lbs. 4.0oz. [id number]; 20.00 BMI Method:Stated General Appearance: WD/WN, no apparent distress Neck: full range of motion, supple Cardiovascular: regular rate, rhythm, no murmur Respiratory: lungs clear, normal breath sounds Gastrointestinal: soft, tenderness (mild at the suprapubic region) Back: no vertebral tenderness, CVA tenderness (R); No CVA tenderness (L) Extremities: non-tender, normal inspection Neurologic/Psychiatric: alert, oriented x 3 Skin: normal color, warm/dry Progress/Results/Core Measures Suspected Sepsis Recent Fever Within 48 Hours: No Infection Criteria Present: None New/Unexplained Altered Menta: No Sepsis Screen: No Definite Risk SIRS Temperature: Pulse: 85 Respiratory Rate: 18 Laboratory Tests 07/10/19 09:25: White Blood Count 9.8 Blood Pressure 135 /90 Mean: 105 Laboratory Tests 07/10/19 09:25: Creatinine 0.80, Platelet Count 270, Total Bilirubin 0.8 Results/Orders Lab Results Laboratory Tests Test 07/10/19 09:25 Range/Units White Blood Count 9.8 4.3-11.0 10^3/uL Red Blood Count 4.37 4.35-5.85 10^6/uL Hemoglobin 13.4 11.5-16.0 G/DL Hematocrit 40 35-52 % Mean Corpuscular Volume 92 80-99 FL Mean Corpuscular Hemoglobin 31 25-34 PG Mean Corpuscular Hemoglobin Concent 33 32-36 G/DL Red Cell Distribution Width 13.4 10.0-14.5 % Platelet Count 270 130-400 10^3/uL Mean Platelet Volume 9.9 7.4-10.4 FL Neutrophils (%) (Auto) 76 H 42-75 % Lymphocytes (%) (Auto) 16 12-44 % Monocytes (%) (Auto) 6 0-12 % Eosinophils (%) (Auto) 2 0-10 % Basophils (%) (Auto) 0 0-10 % Neutrophils # (Auto) 7.5 1.8-7.8 X 10^3 Lymphocytes # (Auto) 1.6 1.0-4.0 X 10^3 Monocytes # (Auto) 0.6 0.0-1.0 X 10^3 Eosinophils # (Auto) 0.2 0.0-0.3 10^3/uL Basophils # (Auto) 0.0 0.0-0.1 10^3/uL Urine Color RED H Urine Clarity VERY CLOUDY H Urine pH 6.5 5-9 Urine Specific [place] 1.015 L 1.016-1.022 Urine Protein 4+ NEGATIVE Urine Glucose (UA) NEGATIVE NEGATIVE Urine Ketones 1+ H NEGATIVE Urine Nitrite NEGATIVE NEGATIVE Urine Bilirubin NEGATIVE NEGATIVE Urine Urobilinogen NORMAL NORMAL MG/DL Urine Leukocyte Esterase 3+ H NEGATIVE Urine RBC (Auto) 5+ H NEGATIVE Urine RBC TNTC H /HPF Urine WBC >100 H /HPF Urine Squamous Epithelial Cells 2-5 /HPF Urine Crystals NONE /LPF Urine Bacteria LARGE H /HPF Urine Casts NONE /LPF Urine Mucus NEGATIVE /LPF Urine Culture Indicated YES Urine Test NEGATIVE NEGATIVE Sodium Level 140 135-145 MMOL/L Potassium Level 3.7 3.6-5.0 MMOL/L Chloride Level 107 98-107 MMOL/L Carbon Dioxide Level 25 21-32 MMOL/L Anion Gap 8 5-14 MMOL/L Blood Urea Nitrogen 13 7-18 MG/DL Creatinine 0.80 0.60-1.30 MG/DL Estimat Glomerular Filtration Rate > 60 BUN/Creatinine Ratio 16 Glucose Level 89 70-105 MG/DL Calcium Level 9.5 8.5-10.1 MG/DL Corrected Calcium 8.5-10.1 MG/DL Total Bilirubin 0.8 0.1-1.0 MG/DL Aspartate Amino Transf (AST/SGOT) 14 5-34 U/L Alanine Aminotransferase (ALT/SGPT) 13 0-55 U/L Alkaline Phosphatase 82 40-136 U/L Total Protein 7.5 6.4-8.2 GM/DL Albumin 4.6 H 3.2-4.5 GM/DL My Orders Orders - MERRILL GRAHAM MD Ua Culture If Indicated (07/10/19 09:20) Urine Bedside (07/10/19 09:20) Cbc With Automated Diff (07/10/19:29) Comprehensive Metabolic Panel (07/10/19:29) Hcg,Qualitative Urine (07/10/19:29) Ed Iv/Invasive Line Start (07/10/19:29) Ns Iv 1000 Ml (Sodium Chloride 0.9%) (07/10/19:29) Ketorolac Injection (Toradol Injection) (07/10/19 09:29) Ondansetron Injection (Zofran Injectio (07/10/19 09:30) Fentanyl Injection (Sublimaze Injection (07/10/19 09:29) Ct Abd/Pelvis Wo(Kidney Stone) (07/10/19 09:46) Urine Culture (07/10/19 09:25) Ceftriaxone For Iv Use (Rocephin For I (07/10/19 11:30) Medications Given in ED Current Medications Medications Dose Ordered Sig/Anibal Route Start Time Stop Time Status Last Admin Dose Admin Ceftriaxone Sodium 1000 mg/ Sterile Water 10 ml @ 200 mls/hr ONCE ONCE IV 07/10/19 11:30 07/10/19 11:32 DC 07/10/19 11:53 200 MLS/HR Ondansetron HCl 4 mg ONCE ONCE IVP 07/10/19 09:30 07/10/19 09:31 DC 07/10/19 09:48 4 MG Vital Signs/I&O 07/10/19 07/10/19 09:23 12:31 Temp 36.3 36.3 Pulse 85 85 Resp 18 18 B/P (MAP) 135/90 (105) 135/90 (105) Pulse Ox 99 99 Capillary Refill : Less Than 3 Seconds Blood Pressure Mean: 105 Progress Note : Progress Note Seen and evaluated. IV, labs, UA, UCG, CT abdomen pelvis kidney stone protocol ordered. Normal saline 1 L bolus, Toradol 30 mg IV, fentanyl 50 g IV and Zofran 4 mg IV ordered. Monitor patient. 1155: CT results noted. Rocephin 1 g IV ordered. Patient had some nausea today so we want to get a first dose of antibiotic IV to ensure that we have good coverage. She is overall feeling better. I do believe this is a fairly significant urinary tract infection. There does not seem to be any stone blockage of the ureters. Monitor patient. 1230: Discharge home with return precautions. Patient verbalize understanding instructions and agreement with plan. She is overall doing better. Diagnostic Imaging Diagonstic Imaging: CT Plain Films/CT/US/NM/MRI: abdomen, pelvis Comments [facility]. [place], [place] NAME: RAUDEL LAI [facility] REC#: [id number] PT STATUS: REG ER : 1995 PHYSICIAN: MERRILL GRAHAM MD ADMIT DATE: 07/10/19/ER Draft Date of Exam:07/10/19 CT ABD/PELVIS WO(KIDNEY STONE) PROCEDURE: CT urinary tract, rule out kidney stone. TECHNIQUE: Multiple contiguous axial images were obtained through the abdomen and pelvis without the use of intravenous contrast. Auto Exposure Controls were utilized during the CT exam to meet ALARA standards for radiation dose reduction. INDICATION: Right posterior pain and hematuria. COMPARISON: 01/23/2019. FINDINGS: The lung bases are clear. The liver and gallbladder are unremarkable. No biliary ductal dilatation is seen. The pancreas and spleen are unremarkable. No adrenal mass is detected. A tiny nonobstructing calculus in the lower pole of the right kidney is again noted measuring approximately 2 mm in size. No definite ureteral calculus or hydronephrosis is identified. No bladder calculi are seen. The aorta is nonaneurysmal. The small and large bowel loops are of normal caliber. The appendix is unremarkable. There is no free fluid or fluid collection. The uterus is unremarkable. No inflammatory changes in the abdomen or pelvis are identified. IMPRESSION: 1. Tiny nonobstructing right renal calculus. No ureteral calculus or hydronephrosis is detected. 2. No CT evidence of acute appendicitis. Dictated on workstation # [id number] Dict: 07/10/19 1006 Trans: 07/10/19 1012 [id number] Interpreted by: FATEMEH CHISHOLM MD Electronically signed by: Departure Impression Primary Impression: Urinary tract infection Qualified Codes: N30.01 - Acute cystitis with hematuria Disposition: HOME, SELF-CARE Condition: Stable Departure-Patient Inst. Decision time for Depature: 11:56 Referrals: NO,LOCAL PHYSICIAN (PCP/Family) Primary Care Physician Patient Instructions: Urinary Tract Infection, Adult (DC) Add. Discharge Instructions: All discharge instructions reviewed with patient and/or family. Voiced understanding. Take medications as directed. Follow-up with your DrAbraham in a few days for recheck. Drink plenty of fluids. You may take Tylenol/acetaminophen 1000 mg every 8 hours as needed for pain. You may take ibuprofen 400 mg every 6 hours as needed for pain. Return for worse pain, fever, vomiting, weakness, breathing problems or other concerns as needed. Scripts Tramadol HCl (Tramadol HCl) 50 Mg Tablet 50 MG PO Q6H PRN for PAIN for 3 Days, #10 TAB 0 Refills Prov: MERRILL GRAHAM MD 07/10/19 Cefdinir (Cefdinir) 300 Mg Capsule 300 MG PO BID, #10 CAP 0 Refills Prov: MERRILL GRAHAM MD 07/10/19 Work/School Note: Work Release Form Date Seen in the Emergency Department: Jul 10, 2019 Return to Work: Jul 11, 2019 Restrictions: No Restrictions MERRILL GRAHAM MD Jul 10, 2019 09:56
[2019-07-10 09:57] LABS: ALANINE AMINOTRANSFERASE 13 U/L (0-55); ALBUMIN 4.6 GM/DL (3.2-4.5); ALKALINE PHOSPHATASE 82 U/L (40-136); BILIRUBIN,TOTAL 0.8 MG/DL (0.1-1.0); BUN/CREATININE RATIO 16; CALCIUM 9.5 MG/DL (8.5-10.1); CARBON DIOXIDE 25 MMOL/L (21-32); CHLORIDE 107 MMOL/L (98-107); GFR ESTIMATED > 60; GLUCOSE 89 MG/DL (70-105); POTASSIUM 3.7 MMOL/L (3.6-5.0); SODIUM 140 MMOL/L (135-145); TOTAL PROTEIN 7.5 GM/DL (6.4-8.2)
[2019-07-10 09:59] LABS: RBC,URINE TNTC /HPF; WBC,URINE >100 /HPF
[2019-07-10 10:00] LABS: BACTERIA,URINE LARGE /HPF
--- NOTE | 2019-07-10 10:13 | Diagnostic Imaging Report ---
PROCEDURE: CT urinary tract, rule out kidney stone. TECHNIQUE: Multiple contiguous axial images were obtained through the abdomen and pelvis without the use of intravenous contrast. Auto Exposure Controls were utilized during the CT exam to meet ALARA standards for radiation dose reduction. INDICATION: Right posterior pain and hematuria. COMPARISON: 01/23/2019. FINDINGS: The lung bases are clear. The liver and gallbladder are unremarkable. No biliary ductal dilatation is seen. The pancreas and spleen are unremarkable. No adrenal mass is detected. A tiny nonobstructing calculus in the lower pole of the right kidney is again noted measuring approximately 2 mm in size. No definite ureteral calculus or hydronephrosis is identified. No bladder calculi are seen. The aorta is nonaneurysmal. The small and large bowel loops are of normal caliber. The appendix is unremarkable. There is no free fluid or fluid collection. The uterus is unremarkable. No inflammatory changes in the abdomen or pelvis are identified. IMPRESSION: 1. Tiny nonobstructing right renal calculus. No ureteral calculus or hydronephrosis is detected. 2. No CT evidence of acute appendicitis. Dictated by: Dictated on workstation # [id number]
[2019-07-10] MEDS ORDERED: cefTRIAXone FOR IV USE 1,000 MG in WATER (STERILE) FOR INJECTION 10 ML IV ONE (11:30)
[2019-07-10] MEDS ORDERED: CEFD300C3 PO (11:58)
[2019-07-10 12:31] VITALS: BP 135/90
[2019-07-10] MEDS ORDERED: TRAM50TA2 PO (12:47)
== END 2019-07-10 12:31 | disposition home or self-care (01) ==
LOC: EDUNIT# 09:12 → ER 09:13
DX: N39.0 Urinary tract infection, site not specified (principal); F17.210 Nicotine dependence, cigarettes, uncomplicated; Z90.89 Acquired absence of other organs; Z87.442 Personal history of urinary calculi; Z88.0 Allergy status to penicillin; Z88.8 Allergy status to other drugs, medicaments and biological substances
CPT/HCPCS: 36415; 74176; 80053; 81000; 84703; 85025; 87077; 87088; 87186

== ENCOUNTER 2019-07-25 10:43 | Emergency (ER) | payer MEDICAID ==
[~2019-07-25] VITALS: Ht 157 cm; Wt 50.0 kg
[~2019-07-25 10:43] MED LIST changes: +CEFD300C3 PO
--- NOTE | 2019-07-25 11:08 | ED GU-Female ---
General Chief Complaint: - Urinary Stated Complaint: KIDNEY STONES Nursing Triage Note: PT CO OF LOWER ABD DISCOMFORT, URGENCY,REQUENCY, VOIDING SMALL AMOUNTS. STATES URETHRA HURTS Nursing Sepsis Screen: No Definite Risk Source: patient Exam Limitations: no limitations History of Present Illness Date Seen by Provider: Jul 25, 2019 Time Seen by Provider: 10:55 Initial Comments Patient presents to ER by private conveyance with chief complaint of urethral redness, suprapubic abdominal pain. She said she started having pain this morning. The liver week ago she was having pain and right flank pain and was diagnosed with a kidney stone. She said the antibiotics helped pain go away about 3 or 4 days ago however it is back without flank pain today. She rates as 8 out of 10. She's not had any fevers nausea vomiting chills. She's had C- section but no other abdominal surgeries. She is on Depo-Provera shot with her last menstrual was 3 or 4 months ago. She noticed some bright red blood on wiping but did not see any blood in the urine. Allergies and Home Medications Allergies Coded Allergies: amoxicillin (Verified Allergy, Mild, 03/21/18) clavulanic acid (Verified Allergy, Mild, 03/21/18) Home Medications Gabapentin 100 Mg Capsule, Unknown Dose PO Q8H, (Reported) Patient Home Medication List Home Medication List Reviewed: Yes Review of Systems Review of Systems Constitutional: No chills, No fever EENTM: No ear discharge, No ear pain Respiratory: No cough, No short of breath Cardiovascular: No chest pain, No edema Gastrointestinal: see HPI, abdominal pain; No constipation, No diarrhea Past Pmhsznq-Parjok-Bbkbqb Hx Patient Social History Alcohol Use: Denies Use Recreational Drug Use: Yes (POT) Smoking Status: Never a Smoker Type Used: Cigarettes 2nd Hand Smoke Exposure: No Recent Foreign Travel: No Contact w/Someone Who Travel: No Recent Infectious Disease Expo: No Recent Hopitalizations: No Immunizations Up To Date Tetanus Booster (TDap): Unknown PED Vaccines UTD: Yes Seasonal Allergies Seasonal Allergies: No Past Medical History Surgeries: Yes ( X 2L RIGHT FOREARM FX/ ORIF) Section, Orthopedic, Tonsillectomy Respiratory: No Cardiac: No Neurological: No : No Reproductive Disorders: No 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 Sexually Transmitted Disease: No HIV/AIDS: No Genitourinary: No Gastrointestinal: No Musculoskeletal: Yes (RIGHT FOREARM FX/ORIF-' nerve damage' PER PT) Fractures Endocrine: No HEENT: No Loss of Vision: Denies Hearing Impairment: Denies Cancer: No Psychosocial: No Integumentary: Yes Eczema Blood Disorders: No Adverse Reaction/Blood Tranf: No Family Medical History No Pertinent Family Hx Physical Exam Vital Signs Vital Signs - First Documented 07/25/19 10:55 Temp 36.0 Pulse 89 Resp 18 B/P (MAP) 121/79 (93) Capillary Refill : Less Than 3 Seconds Height, Weight, BMI Height: 5'2.00" Weight: 115lbs. 4.0oz. 52.459869aa; 20.00 BMI Method:Stated General Appearance: WD/WN, mild distress HEENT: PERRL/EOMI, pharynx normal Cardiovascular: normal peripheral pulses, regular rate, rhythm Respiratory: no respiratory distress, no accessory muscle use Gastrointestinal: normal bowel sounds, soft, tenderness (suprapubic) Neurologic/Psychiatric: alert, normal mood/affect, oriented x 3, other (stoic) Progress/Results/Core Measures Suspected Sepsis Recent Fever Within 48 Hours: No Infection Criteria Present: None New/Unexplained Altered Menta: No Sepsis Screen: No Definite Risk SIRS Temperature: Pulse: 89 Respiratory Rate: 18 Blood Pressure 121 /79 Mean: 93 Results/Orders Lab Results Laboratory Tests Test 07/25/19 10:55 Range/Units Urine Color YELLOW Urine Clarity CLEAR Urine pH 6 5-9 Urine Specific [place] 1.020 1.016-1.022 Urine Protein 3+ H NEGATIVE Urine Glucose (UA) NEGATIVE NEGATIVE Urine Ketones NEGATIVE NEGATIVE Urine Nitrite NEGATIVE NEGATIVE Urine Bilirubin NEGATIVE NEGATIVE Urine Urobilinogen NORMAL NORMAL MG/DL Urine Leukocyte Esterase 3+ H NEGATIVE Urine RBC (Auto) 2+ H NEGATIVE Urine RBC 2-5 H /HPF Urine WBC >100 H /HPF Urine Squamous Epithelial Cells 25-50 H /HPF Urine Crystals NONE /LPF Urine Bacteria MODERATE H /HPF Urine Casts NONE /LPF Urine Mucus NEGATIVE /LPF Urine Culture Indicated YES My Orders Orders - KARTIK ISRAEL Ua Culture If Indicated (07/25/19 10:51) Urine Bedside (07/25/19 10:51) Ketorolac Injection (Toradol Injection) (07/25/19 11:15) Urine Culture (07/25/19 10:55) Ct Abd/Pelvis Wo(Kidney Stone) (07/25/19 12:01) Medications Given in ED Current Medications Medications Dose Ordered Sig/Anibal Route Start Time Stop Time Status Last Admin Dose Admin Ketorolac Tromethamine 30 mg ONCE ONCE IM 07/25/19 11:15 07/25/19 11:16 DC 07/25/19 11:22 30 MG Vital Signs/I&O 07/25/19 10:55 Temp 36.0 Pulse 89 Resp 18 B/P (MAP) 121/79 (93) Capillary Refill : Less Than 3 Seconds Blood Pressure Mean: 93 Progress Note #1: Time: 11:05 Progress Note Toradol IM for her pain. We'll obtain a urinalysis. If there is blood in the urine will get a CT. Urinalysis from July 10, 2019 demonstrated Escherichia coli bae sensitive to everything except for ampicillin. Physician Note from July 10 demonstrated tiny nonobstructing right renal stones with no ureteral calculi or hydronephrosis seen. She was given a gram of Rocephin and put out on Omnicef. Progress Note #2: Time: 12:05 Progress Note Toradol helped with the pain. CT from 10 days ago did not demonstrate any large kidney stones. We have offered a CT versus just giving antibiotics and follow up outpatient and the patient would prefer to do that. Departure Impression Primary Impression: Urinary tract infection Qualified Codes: N30.01 - Acute cystitis with hematuria Disposition: HOME, SELF-CARE Condition: Stable Departure-Patient Inst. Decision time for Depature: 12:05 Referrals: NO,LOCAL PHYSICIAN (PCP) Primary Care Physician DEWEY SHARPE MD Patient Instructions: Urinary Tract Infection, Adult (DC) Add. Discharge Instructions: Drink lots of fluids. Keflex one capsule twice a day for the next week. If you're still having pain Monday follow-up with Dr. Sharpe, urology or your primary care doctor or you may follow-up in the ER. All discharge instructions reviewed with patient and/or family. Voiced understanding. Scripts Cephalexin (Keflex) 500 Mg Capsule 500 MG PO BID for 7 Days, #14 CAP 0 Refills Prov: KARTIK ISRAEL 07/25/19 Hydrocodone Bit/Acetaminophen (Hydrocodone/Acetaminophen 5/325mg Tablet) 1 Tab Tab 1 EACH PO Q4-6HR PRN for PAIN-MODERATE MDD 10 for 3 Days, #8 TAB 0 Refills Prov: KARTIK ISRAEL 07/25/19 Work/School Note: Work Release Form Date Seen in the Emergency Department: Jul 25, 2019 Return to Work: Jul 26, 2019 Restrictions: No Restrictions KARTIK ISRAEL Jul 25, 2019 11:08
[2019-07-25] MEDS ORDERED: GABA-486 PO (11:10)
[2019-07-25] MEDS ORDERED: DESV25TA PO (11:10)
[2019-07-25 11:14] LABS: BILIRUBIN,URINE NEGATIVE (NEGATIVE); CLARITY,URINE CLEAR; COLOR,URINE YELLOW; GLUCOSE, URINE (UA) NEGATIVE (NEGATIVE); KETONES,URINE NEGATIVE (NEGATIVE); LEUKOCYTE ESTERASE ,URINE 3+ (NEGATIVE); NITRITE,URINE NEGATIVE (NEGATIVE); PH,URINE 6 (5-9); PROTEIN,URINE 3+ (NEGATIVE); UROBILINOGEN,URINE NORMAL (NORMAL)
[2019-07-25] MEDS ORDERED: KETOROLAC 30 MG/ML VIAL IM ONE (11:15)
[2019-07-25 11:31] LABS: BACTERIA,URINE MODERATE /HPF; SQUAMOUS EPITHELIAL CELL,UR 25-50 /HPF; WBC,URINE >100 /HPF
[2019-07-25] MEDS ORDERED: ACHD5005 PO (12:07)
[2019-07-25] MEDS ORDERED: CEPH-507 PO (12:07)
[2019-07-25] MEDS ORDERED: LIDOCAINE 1% INJ 20 ML 20 ML VIAL ONE (12:11)
[2019-07-25] MEDS ORDERED: cefTRIAXone FOR IV USE 1,000 MG in WATER (STERILE) FOR INJECTION 10 ML IV ONE (12:15)
[2019-07-25] MEDS ORDERED: cefTRIAXone 1,000 MG/2.86 ml vial (IM ONLY) IM STA (12:23)
[2019-07-25] MEDS ORDERED: LIDOCAINE 1% INJ 20 ML 20 ML VIAL INJ ONE (12:30)
[2019-07-25 12:54] VITALS: BP 121/79
== END 2019-07-25 12:54 | disposition home or self-care (01) ==
LOC: EDUNIT# 10:43 → ER 10:45
DX: N39.0 Urinary tract infection, site not specified (principal); Z88.0 Allergy status to penicillin; Z88.1 Allergy status to other antibiotic agents; Z90.49 Acquired absence of other specified parts of digestive tract
CPT/HCPCS: 81000; 84703; 87077; 87088; 87186; 96372; 99284

== ENCOUNTER 2019-08-13 17:32 | Emergency (ER) | payer OTHER, MEDICAID ==
[~2019-08-13] VITALS: Ht 157.4 cm; Wt 50.0 kg
[~2019-08-13 17:32] MED LIST changes: +CEPH-507 PO; +DESV25TA PO; +GABA-486 PO
[2019-08-13] MEDS ORDERED: ACETAMINOPHEN 500 MG TAB (TYLENOL) PO ONE (18:15)
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
[2019-08-13] MEDS ORDERED: CYCL10TA9 PO (18:23)
[2019-08-13] MEDS ORDERED: ONDA4TAB11 PO (18:23)
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
[2019-08-13 19:30] VITALS: BP 128/66
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
== END 2019-08-13 19:30 | disposition home or self-care (01) ==
LOC: EDUNIT# 17:32 → ER 17:33
DX: S06.0X0A Concussion without loss of consciousness, initial encounter (principal); S13.4XXA Sprain of ligaments of cervical spine, initial encounter; M25.512 Pain in left shoulder; M25.571 Pain in right ankle and joints of right foot; R40.2142 Coma scale, eyes open, spontaneous, at arrival to emergency department; R40.2252 Coma scale, best verbal response, oriented, at arrival to emergency department; R40.2362 Coma scale, best motor response, obeys commands, at arrival to emergency department; F17.210 Nicotine dependence, cigarettes, uncomplicated; Z90.89 Acquired absence of other organs; Z88.0 Allergy status to penicillin; Z88.1 Allergy status to other antibiotic agents; V49.40XA Driver injured in collision with unspecified motor vehicles in traffic accident, initial encounter; Y92.411 Interstate highway as the place of occurrence of the external cause
CPT/HCPCS: 72040; 72070; 72100; 73030; 73610

== ENCOUNTER → 2023-05-09 | Outpatient (CLI) | payer MEDICAID ==
[~2023-05-09] MED LIST changes: -CIPR500T4 PO; +CIPR500T5 PO; +CYCL10TA25 PO; -OXYC-471 PO; +OXYC1TAB11 PO; -TRAM50TA2 PO; +TRM50T PO
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
== END ==
LOC: RAD 09:54
PROVIDERS: ATTEND Nurse Practitioner Women's Health
DX: Z34.02 Encounter for supervision of normal first pregnancy, second trimester (principal); Z3A.21 21 weeks gestation of pregnancy
CPT/HCPCS: 76805

== ENCOUNTER 2023-07-26 17:33 | Observation (INO) | payer MEDICAID ==
[~2023-07-26] VITALS: Ht 160 cm; Wt 60.7 kg
[2023-07-26 17:59] VITALS: BP 119/68
[2023-07-26 18:07] LABS: BILIRUBIN,URINE NEGATIVE (NEGATIVE); CLARITY,URINE CLEAR; COLOR,URINE YELLOW; GLUCOSE, URINE (UA) 1+ (NEGATIVE); KETONES,URINE 4+ (NEGATIVE); LEUKOCYTE ESTERASE ,URINE 1+ (NEGATIVE); NITRITE,URINE POSITIVE (NEGATIVE); PROTEIN,URINE 1+ (NEGATIVE)
[2023-07-26 18:08] LABS: BACTERIA,URINE MODERATE /HPF; RBC,URINE 0-2 /HPF; SQUAMOUS EPITHELIAL CELL,UR RARE /HPF
[2023-07-26] MEDS ORDERED: cefTRIAXone IV/IM 1,000 MG in NS (IVPB) 50 ML 50 ML IV SCH (19:00)
--- NOTE | 2023-07-26 19:17 | History & Physical-OB ---
OB - Chief Complaint & HPI Date/Time Date of Admission: Date of Admission: 07/26/2023 Date seen by a Provider: Jul 26, 2023 Time Seen by a Provider: 19:00 Chief Complaint/History OB-Reason for Admission/Chief: Medical Complication (pyelonephritis) Hx : 4 Hx Para: 2 Expected Date of Delivery: Sep 09, 2023 Gestational Age in Weeks: 33 Gestational Age in Days: 4 Admission Nurse Assessment Rev: Yes History of Labs B+ R-I Hep B/C neg HIV neg RPR neg Other This 28-year-old presents to labor and delivery at 33 weeks 4 days EGA with complaint of left flank pain that started this afternoon at about 1330. She states that the pain was so bad that she was having trouble walking and moving around. She denies any loss of fluid or vaginal bleeding. She denies any contractions. Patient has a history of placental abruption at 33 weeks with a stat section and a 36-week delivery. Patient states that she had a history of severe preeclampsia with her first . Patient states that she only drinks Dr. Pepper and has not been drinking any water. Patient states that she was treated for urinary tract infection earlier this . Patient had a culture in February of this year which was positive for E. coli. This is also significant for growth restriction. Baby is measuring in the less than 7th percentile and is doing biophysical profiles weekly. Her last 1 was last week. Patient states that she smokes 1/2 half pack per day of cigarettes. Allergies and Home Medications Allergies Coded Allergies: amoxicillin (Verified Allergy, Mild, 03/21/18) clavulanic acid (Verified Allergy, Mild, 03/21/18) Patient Home Medication List Home Medication List Reviewed: Yes Cephalexin (Keflex) 500 Mg Capsule, 500 MG PO BID Prescribed by: KARTIK ISRAEL on 07/25/19 1207 Last Action: Reviewed Cyclobenzaprine HCl (Cyclobenzaprine HCl) 10 Mg Tablet, 10 MG PO Q8H PRN for SPASMS Prescribed by: KARTIK ISRAEL on 08/13/19 1823 Last Action: Reviewed Desvenlafaxine Succinate (Pristiq ER) 25 Mg Tab.er.24h, Unknown Dose PO, (Reported) Entered as Reported by: TRESSA CRAVEN on 07/25/19 1110 Last Action: Reviewed Gabapentin (Gabapentin) 100 Mg Capsule, Unknown Dose PO Q8H, (Reported) Entered as Reported by: TRESSA CRAVEN on 07/25/19 1110 Last Action: Reviewed Hydrocodone Bit/Acetaminophen (Lortab 5 Mg Tablet) 1 Tab Tab, 1 EACH PO Q4-6HR PRN for PAIN-MODERATE Prescribed by: KARTIK ISRAEL on 07/25/19 1207 Last Action: Reviewed Ondansetron (Ondansetron Odt) 4 Mg Tab.rapdis, 4 MG PO Q6H PRN for NAUSEA/VOMITING Prescribed by: KARTIK ISRAEL on 08/13/19 1823 Last Action: Reviewed OB - History Hx of Present Care: Yes Ultrasounds: Abnormal US findings (EFW in the less than 7th percentile for growth) Obstetrical Complications: Growth Restriction Medical Complications: Genitourinary Information Induced Hypertension: No Maternal Gestational Diabetes: No Hemorrhage: No Obstetrical History Hx : 4 Hx Para: 2 Hx # Pregnancies: 2 Number of Living Children: 2 Hx Termination: Yes Hx Total # of Abortions (Spona: 1 Hx Induced Hypertens: Yes (this ) Hx Hemorrhage: Yes (Placental abruption with first baby) Delivery History Hx Small for Gestational Age I: Yes Hx Section: Yes (x2) Hx Blood Disorders: No Adverse Rxn to Tranfusion: No Patient Past Medical History Hx of abruption, and tobacco use/substance abuse PSH x2, tonsillectomy Social History/Family History Alcohol Use: Denies Use Recreational Drug Use: No Smoking Cessation: Current every day smoker 2nd Hand Smoke Exposure: Yes Immunizations Influenza Vaccine Up-to-Date: Yes; Up-to-Date Hepatitis A: Yes Hepatitis B: No Tetanus Booster (TDap): Unknown OB - Admission Exam Physical Exam Vitals: Vital Signs 07/26/23 17:59 Temp 38.1 Pulse 123 Resp 18 B/P (MAP) 119/68 Pulse Ox 96 O2 Delivery Room Air HEENT: NCAT Heart: Rhythm Normal Lungs: Clear Abdomen: Gravid (Tender + CVA tenderness on the left) Extremities: Normal Reflexes: Normal Heart Rate: 150's Accelerations: Accelerations Present Decelerations: Variable Decelerations (Occasional) Short Term Variability: Present Firefighter Type One Variability: Average (6-25) Contractions on Admission: >10 Minutes Apart Intensity: Mild Labs Laboratory Tests Test 07/26/23 17:50 Range/Units Urine Color YELLOW Urine Clarity CLEAR Urine pH 6.0 5-9 Urine Specific [place] 1.025 H 1.016-1.022 Urine Protein 1+ H NEGATIVE Urine Glucose (UA) 1+ H NEGATIVE Urine Ketones 4+ H NEGATIVE Urine Nitrite POSITIVE H NEGATIVE Urine Bilirubin NEGATIVE NEGATIVE Urine Urobilinogen 2.0 < = 1.0 MG/DL Urine Leukocyte Esterase 1+ H NEGATIVE Urine RBC (Auto) 1+ H NEGATIVE Urine RBC 0-2 /HPF Urine WBC 10-25 H /HPF Urine Squamous Epithelial Cells RARE /HPF Urine Crystals NONE /LPF Urine Bacteria MODERATE H /HPF Urine Casts NONE /LPF Urine Mucus NEGATIVE /LPF Urine Culture Indicated YES OB - Assessment/Plan/Diagnosis Assessment Admission Dx IUP 33w4d Pyelonephritis Admission Status: Observation Plan Plan: Other (IV ATBx IV hydration ) YVONNE BARRETO DO Jul 26, 2023 19:17
[2023-07-26] MEDS: LACTATED RINGERS 1,000 ML 500 ML IV SCH ×2 (20:30→20:35)
[2023-07-26] MEDS: LACTATED RINGERS 1,000 ML 1,000 ML IV SCH (20:35)
[2023-07-26] MEDS: ACETAMINOPHEN 500 MG TABLET PO PRN (20:42)
[2023-07-26] MEDS: HYDROcodone/ACETAMINOPHEN 5 MG/325 MG TABLET PO PRN (20:42)
[2023-07-26 21:50] LABS: AMPHETAMINE SCREEN, URINE NEGATIVE (NEGATIVE); BARBITURATE SCREEN URINE NEGATIVE (NEGATIVE); CANNABINOID SCREEN, URINE NEGATIVE (NEGATIVE); COCAINE SCREEN URINE NEGATIVE (NEGATIVE); METHADONE STAT NEGATIVE (NEGATIVE); OPIATE SCREEN URINE NEGATIVE (NEGATIVE); OXYCODONE STAT NEGATIVE (NEGATIVE); PROPOXYPHENE STAT NEGATIVE (NEGATIVE); TRICYCLIC ANTIDEPRESSANTS SCRE NEGATIVE (NEGATIVE)
[2023-07-27] VITALS: BP 103/54
[2023-07-27] MEDS: ACETAMINOPHEN 500 MG TABLET PO PRN ×3 (00:55→15:09)
[2023-07-27] MEDS: HYDROcodone/ACETAMINOPHEN 5 MG/325 MG TABLET PO PRN ×3 (00:55→15:09)
[2023-07-27] MEDS: LACTATED RINGERS 1,000 ML 1,000 ML IV SCH (02:11)
[2023-07-27 04:45] VITALS: BP 117/67
[2023-07-27 07:36] LABS: BASOPHILS % (AUTO) 0 % (0-10); EOSINOPHILS # (AUTO) 0.2 10^3/uL (0.0-0.3); EOSINOPHILS % (AUTO) 2 % (0-10); HEMATOCRIT 28 % (35-52); HEMOGLOBIN 9.6 g/dL (11.5-16.0); LYMPHOCYTES # (AUTO) 2.4 10^3/uL (1.0-4.0); LYMPHOCYTES % (AUTO) 17 % (12-44); MEAN CORPUSCULAR HEMOGLOBIN 32 pg (25-34); MEAN CORPUSCULAR HGB CONC 34 g/dL (32-36); MEAN CORPUSCULAR VOLUME 92 fL (80-99); MEAN PLATELET VOLUME 10.2 fL (9.0-12.2); MONOCYTES % (AUTO) 7 % (0-12); NEUTROPHILS # (AUTO) 10.5 10^3/uL (1.8-7.8); NEUTROPHILS % (AUTO) 74 % (42-75); PLATELET COUNT 214 10^3/uL (130-400); WHITE BLOOD COUNT 14.2 10^3/uL (4.3-11.0)
[2023-07-27 08:21] LABS: BAND NEUTROPHILS 0 %; EOSINOPHILS % (MANUAL) 1 %; LYMPHOCYTES % (MANUAL) 17 %; MONOCYTES % (MANUAL) 3 %; NEUTROPHILS % (MANUAL) 79 %
[2023-07-27 08:22] LABS: BASOPHILS % (MANUAL) 0 %; RBC MORPH NORMAL
[2023-07-27 09:30] VITALS: BP 119/70
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
[2023-07-27 14:25] VITALS: BP 123/71
== END 2023-07-27 16:30 | disposition home or self-care (01) ==
LOC: WSo 17:33 → LDRP 17:34 → WSo 17:36 → LDRP 17:36 → UNDOADMOB 17:37 → LDRP 17:37 → UNDODISOB 07-27 16:30 → EDSTATUS 07-31 15:35
PROVIDERS: ADMIT Obstetrics & Gynecology; ATTEND Obstetrics & Gynecology
DX: O23.03 Infections of kidney in pregnancy, third trimester (principal); O99.333 Smoking (tobacco) complicating pregnancy, third trimester; Z3A.33 33 weeks gestation of pregnancy; F17.210 Nicotine dependence, cigarettes, uncomplicated; Z28.310 Unvaccinated for COVID-19
CPT/HCPCS: 76815; 80306; 81000; 85007; 85027; 87077; 87088; 87186; 96360; 96361; 96375; G0378; G0379; 36415

== ENCOUNTER 2023-08-18 12:11 | Outpatient (CLI) | payer MEDICAID ==
[~2023-08-18] VITALS: Ht 157.5 cm; Wt 65.3 kg
[2023-08-18 12:30] VITALS: BP 139/89
[2023-08-18 13:22] LABS: BASOPHILS % (AUTO) 0 % (0-10); EOSINOPHILS # (AUTO) 0.1 10^3/uL (0.0-0.3); EOSINOPHILS % (AUTO) 1 % (0-10); HEMATOCRIT 34 % (35-52); HEMOGLOBIN 11.6 g/dL (11.5-16.0); LYMPHOCYTES % (AUTO) 18 % (12-44); MEAN CORPUSCULAR HEMOGLOBIN 31 pg (25-34); MEAN CORPUSCULAR HGB CONC 34 g/dL (32-36); MEAN CORPUSCULAR VOLUME 93 fL (80-99); MEAN PLATELET VOLUME 10.4 fL (9.0-12.2); MONOCYTES # (AUTO) 0.5 10^3/uL (0.0-1.0); MONOCYTES % (AUTO) 5 % (0-12); NEUTROPHILS # (AUTO) 8.2 10^3/uL (1.8-7.8); NEUTROPHILS % (AUTO) 75 % (42-75); PLATELET COUNT 205 10^3/uL (130-400); WHITE BLOOD COUNT 10.9 10^3/uL (4.3-11.0)
[2023-08-18 13:26] LABS: AMPHETAMINE SCREEN, URINE NEGATIVE (NEGATIVE); BARBITURATE SCREEN URINE NEGATIVE (NEGATIVE); CANNABINOID SCREEN, URINE NEGATIVE (NEGATIVE); COCAINE SCREEN URINE NEGATIVE (NEGATIVE); METHADONE STAT NEGATIVE (NEGATIVE); OPIATE SCREEN URINE NEGATIVE (NEGATIVE); OXYCODONE STAT NEGATIVE (NEGATIVE); TRICYCLIC ANTIDEPRESSANTS SCRE NEGATIVE (NEGATIVE)
[2023-08-18 13:30] VITALS: BP 161/105
[2023-08-18 13:35] VITALS: BP 143/92
[2023-08-18 13:35] LABS: ALBUMIN 3.2 GM/DL (3.2-4.5); POTASSIUM 3.9 MMOL/L (3.6-5.0)
[2023-08-18 13:36] LABS: CALCIUM 8.8 MG/DL (8.5-10.1)
[2023-08-18 13:38] LABS: TOTAL PROTEIN 6.2 GM/DL (6.4-8.2)
[2023-08-18 13:39] LABS: BILIRUBIN,TOTAL 0.5 MG/DL (0.1-1.0)
[2023-08-18 13:41] LABS: CREATININE SERUM 0.58 MG/DL (0.60-1.30)
[2023-08-18 13:44] LABS: URIC ACID 5.4 MG/DL (2.6-7.2)
[2023-08-18 14:00] VITALS: BP 158/84
[2023-08-18 14:32] VITALS: BP 158/84
--- NOTE | 2023-08-21 08:28 | Physician Query-Final Dx ---
LINDEN,08/21/23 0828: Clinic Account Progress/Dx Physician Query: Please give diagnosis Please include # weeks gestation Date of Service Aug 18, 2023 at 12:11 BETTY GALAVIZ DO 08/21/23 1428: Clinic Account Progress/Dx DIAGNOSIS: Diagnosis 36 week IUP Mild PreE Previous LINDEN,OctAug 21, 2023 08:28 BETTY GALAVIZ DO Aug 21, 2023 14:28
== END 2023-08-18 14:32 | disposition home or self-care (01) ==
LOC: LDRP 12:11 → WSo 12:11
PROVIDERS: ATTEND Obstetrics & Gynecology
DX: O16.3 Unspecified maternal hypertension, third trimester (principal); Z3A.36 36 weeks gestation of pregnancy
CPT/HCPCS: 80053; 80306; 82570; 84156; 84550; 85025; G0463; 36415; 99213

== ENCOUNTER 2023-08-21 10:34 | Inpatient (IN) | payer MEDICAID ==
[~2023-08-21] VITALS: Ht 157.5 cm; Wt 65.6 kg
[2023-08-21] VITALS (11 sets, daily range): BP systolic 124–180; BP diastolic 67–106
[2023-08-21] MEDS ORDERED: CATHETER FLUSH 10 ML SYR IV PRN (11:15)
[2023-08-21] MEDS ORDERED: LACTATED RINGERS 1,000 ML 1,000 ML IV PRN ×2 (11:15)
[2023-08-21] MEDS ORDERED: METOCLOPRAMIDE INJ 10 MG/2 ML IV ONE (11:15)
[2023-08-21] MEDS ORDERED: CITRIC ACID/SODIUM CITRATE ORAL SOLN 30 ML PO ONE (11:15)
[2023-08-21 11:33] LABS: BASOPHILS % (AUTO) 0 % (0-10); EOSINOPHILS # (AUTO) 0.1 10^3/uL (0.0-0.3); EOSINOPHILS % (AUTO) 1 % (0-10); HEMATOCRIT 33 % (35-52); LYMPHOCYTES # (AUTO) 1.8 10^3/uL (1.0-4.0); LYMPHOCYTES % (AUTO) 19 % (12-44); MEAN CORPUSCULAR HEMOGLOBIN 31 pg (25-34); MEAN CORPUSCULAR HGB CONC 34 g/dL (32-36); MEAN CORPUSCULAR VOLUME 92 fL (80-99); MEAN PLATELET VOLUME 10.6 fL (9.0-12.2); MONOCYTES # (AUTO) 0.5 10^3/uL (0.0-1.0); MONOCYTES % (AUTO) 5 % (0-12); NEUTROPHILS # (AUTO) 7.1 10^3/uL (1.8-7.8); NEUTROPHILS % (AUTO) 74 % (42-75); PLATELET COUNT 200 10^3/uL (130-400); WHITE BLOOD COUNT 9.5 10^3/uL (4.3-11.0)
[2023-08-21] MEDS ORDERED: ceFAZolin INJECTION 2,000 MG in NS (IVPB) 50 ML 50 ML IV ONE (12:00)
[2023-08-21] MEDS ORDERED: FAMOTIDINE INJ 20MG/2ML VIAL ONE (12:01)
[2023-08-21] MEDS ORDERED: FAMOTIDINE INJ 20MG/2ML VIAL IV NR (12:45)
[2023-08-21] MEDS ORDERED: fentaNYL INJECTION 100 MCG/2 ML VIAL ONE (13:24)
--- NOTE | 2023-08-21 14:20 | History & Physical-OB ---
OB - Chief Complaint & HPI Date/Time Date of Admission: Date of Admission: Aug 21, 2023 at 10:34 Date seen by a Provider: Aug 21, 2023 Time Seen by a Provider: 14:00 Chief Complaint/History OB-Reason for Admission/Chief: Section Hx : 3 Hx Para: 2 Expected Date of Delivery: Sep 09, 2023 Gestational Age in Weeks: 37 Gestational Age in Days: 2 Indication for : desires repeat Other reason for admission: Mild PreE Admission Nurse Assessment Rev: Yes History of Labs Laboratory Tests Test 08/21/23 11:21 Range/Units White Blood Count 9.5 4.3-11.0 10^3/uL Red Blood Count 3.54 L 3.80-5.11 10^6/uL Hemoglobin 11.0 L 11.5-16.0 g/dL Hematocrit 33 L 35-52 % Mean Corpuscular Volume 92 80-99 fL Mean Corpuscular Hemoglobin 31 25-34 pg Mean Corpuscular Hemoglobin Concent 34 32-36 g/dL Red Cell Distribution Width 14.6 H 10.0-14.5 % Platelet Count 200 130-400 10^3/uL Mean Platelet Volume 10.6 9.0-12.2 fL Immature Granulocyte % (Auto) 1 % Neutrophils (%) (Auto) 74 42-75 % Lymphocytes (%) (Auto) 19 12-44 % Monocytes (%) (Auto) 5 0-12 % Eosinophils (%) (Auto) 1 0-10 % Basophils (%) (Auto) 0 0-10 % Neutrophils # (Auto) 7.1 1.8-7.8 10^3/uL Lymphocytes # (Auto) 1.8 1.0-4.0 10^3/uL Monocytes # (Auto) 0.5 0.0-1.0 10^3/uL Eosinophils # (Auto) 0.1 0.0-0.3 10^3/uL Basophils # (Auto) 0.0 0.0-0.1 10^3/uL Immature Granulocyte # (Auto) 0.1 0.0-0.1 10^3/uL Allergies and Home Medications Allergies Coded Allergies: amoxicillin (Verified Allergy, Mild, 03/21/18) clavulanic acid (Verified Allergy, Mild, 03/21/18) Patient Home Medication List Home Medication List Reviewed: Yes Cephalexin (Keflex) 500 Mg Capsule, 500 MG PO BID Prescribed by: KARTIK ISRAEL on 07/25/19 1207 Desvenlafaxine Succinate (Pristiq ER) 25 Mg Tab.er.24h, Unknown Dose PO, (Reported) Entered as Reported by: TRESSA CRAVEN on 07/25/19 1110 Gabapentin (Gabapentin) 100 Mg Capsule, Unknown Dose PO Q8H, (Reported) Entered as Reported by: TRESSA CRAVEN on 07/25/19 1110 Ondansetron (Ondansetron Odt) 4 Mg Tab.rapdis, 4 MG PO Q6H PRN for NA USEA/VOMITING Prescribed by: KARTIK ISRAEL on 08/13/19 1823 OB - History Hx of Present Care: Yes Ultrasounds: Normal mid trimester US Obstetrical Complications: Pre-eclampsia Medical Complications: None Obstetrical History Hx Termination: Yes Hx Induced Hypertens: Yes (this ) Delivery History Hx Small for Gestational Age I: Yes Hx Section: Yes (x2) Hx Blood Disorders: No Adverse Rxn to Tranfusion: No Patient Past Medical History Hx of abruption, and tobacco use/substance abuse PSH x2, tonsillectomy Social History/Family History 2nd Hand Smoke Exposure: Yes Immunizations Influenza Vaccine Up-to-Date: No; Not Current Hepatitis A: No Hepatitis B: No Tetanus Booster (TDap): Unknown OB - Admission Exam Physical Exam Vitals: Vital Signs 08/21/23 08/21/23 10:55 11:38 Temp 36.4 Pulse 78 Resp 20 B/P (MAP) 140/93 (109) Pulse Ox 99 O2 Delivery Room Air HEENT: NCAT Heart: Rhythm Normal Abdomen: Gravid Extremities: Normal Reflexes: Normal Heart Rate: 130's Accelerations: Accelerations Present Decelerations: No Decelerations Short Term Variability: Present Rag Shredder Variability: Absent (0-2) Contractions on Admission: >10 Minutes Apart Intensity: Mild Labs Laboratory Tests Test 08/21/23 11:21 Range/Units White Blood Count 9.5 4.3-11.0 10^3/uL Red Blood Count 3.54 L 3.80-5.11 10^6/uL Hemoglobin 11.0 L 11.5-16.0 g/dL Hematocrit 33 L 35-52 % Mean Corpuscular Volume 92 80-99 fL Mean Corpuscular Hemoglobin 31 25-34 pg Mean Corpuscular Hemoglobin Concent 34 32-36 g/dL Red Cell Distribution Width 14.6 H 10.0-14.5 % Platelet Count 200 130-400 10^3/uL Mean Platelet Volume 10.6 9.0-12.2 fL Immature Granulocyte % (Auto) 1 % Neutrophils (%) (Auto) 74 42-75 % Lymphocytes (%) (Auto) 19 12-44 % Monocytes (%) (Auto) 5 0-12 % Eosinophils (%) (Auto) 1 0-10 % Basophils (%) (Auto) 0 0-10 % Neutrophils # (Auto) 7.1 1.8-7.8 10^3/uL Lymphocytes # (Auto) 1.8 1.0-4.0 10^3/uL Monocytes # (Auto) 0.5 0.0-1.0 10^3/uL Eosinophils # (Auto) 0.1 0.0-0.3 10^3/uL Basophils # (Auto) 0.0 0.0-0.1 10^3/uL Immature Granulocyte # (Auto) 0.1 0.0-0.1 10^3/uL OB - Assessment/Plan/Diagnosis Assessment Assessment: section Admission Dx 28 yo @ 37 weeks Previous x 2 Mild Preeclampsia GBS neg Hx of ilicit drug use Tobacco use in Admission Status: Inpatient Order (span 2 midnights) Reason for Inpatient Admission: Repeat Plan Plan: Section BETTY GALAVIZ DO Aug 21, 2023 14:20
[2023-08-21] MEDS ORDERED: Tetanus/Diphtheria/Pertussis (Acell) ADULT Vaccine 0.5 ML IM SCH (14:30)
[2023-08-21] MEDS ORDERED: NALOXONE 0.4 MG/ML 1 ML VIAL IV PRN (14:30)
[2023-08-21] MEDS ORDERED: ONDANSETRON INJECTION 4 MG/2 ML (SDV) IVP PRN (14:30)
[2023-08-21] MEDS ORDERED: BISACODYL 10 MG SUPPOSITORY PR PRN (14:30)
[2023-08-21] MEDS ORDERED: MEASLES, MUMPS, RUBELLA VACCINE (MMR) SC SCH (14:30)
--- NOTE | 2023-08-21 14:30 | Discharge Inst-Women's Service ---
Discharge Inst-Women's Serv Depart Medication/Instructions New, Converted or Re-Newed RX: Transmitted to Pharmacy Final Diagnosis POD 2 RLTCS Mild PreE Problems Reviewed?: Yes Consults/Follow Up Additional Follow Up: Yes Orders/Referrals DR. Ahumada in 7-10 days and in 6 weeks Activity Activity: Activity as Tolerated Driving Instructions: No Driving for 1 Week NO SMOKING: NO SMOKING Nothing Inside Vagina: No Douching, No [place], No Tampons Diet Discharge Diet: No Restrictions Symptoms to Report to : Bleeding Excessive, Pain Increased, Fever Over 101 Degrees F, Vaginal Bleeding Increase, Questions/Concerns For Any Problems or Questions: Contact Your Physician Skin/Wound Care Infection Signs and Symptoms: Increased Redness, Foul Odor of Wound, Increased Drainage, Skin Itchy or Has a Rash, Increased Swelling, Temperature Above 101 F Operative Area Clean and Dry: Keep Incision Clean/Dry Stitches/Tyrese/Dermabond: Dermabond, Care of Stitches Bathing Instructions: BETTY Bernal DO Aug 21, 2023 14:30
[2023-08-21] MEDS ORDERED: DOCU100C37 PO (14:31)
[2023-08-21] MEDS ORDERED: IBUP-844 PO (14:31)
[2023-08-21] MEDS ORDERED: ACHD5005 PO (14:31)
[2023-08-21] MEDS ORDERED: OXYTOCIN DRIP PRE-MIX 1,000 ML IV ONE (15:07)
[2023-08-21] MEDS ORDERED: BUPIVACAINE 0.25% 10 ML VIAL ONE (15:21)
[2023-08-21] MEDS: KETOROLAC INJ 30 MG/ML VIAL IV SCH ×2 (15:55→21:59)
[2023-08-21] MEDS: OXYTOCIN DRIP PRE-MIX 500 ML IV SCH ×2 (16:43→20:48)
[2023-08-21] MEDS: HYDROcodone/ACETAMINOPHEN 5 MG/325 MG TABLET PO PRN (18:57)
[2023-08-21] MEDS: LABETALOL 200 MG TABLET PO SCH (20:31)
[2023-08-21] MEDS: DOCUSATE SODIUM 100 MG CAPSULE PO SCH (20:31)
[2023-08-21] MEDS: CATHETER FLUSH 10 ML SYR IV SCH (21:59)
[2023-08-22] VITALS: BP 132/79
--- NOTE | 2023-08-22 00:08 | OPERATIVE REPORT ---
PREOPERATIVE DIAGNOSES: 1. A 28-year-old at 37 weeks and 2 days gestation. 2. Mild preeclampsia. 3. Previous section x2. POSTOPERATIVE DIAGNOSES: 1. A 28-year-old at 37 weeks and 2 days gestation. 2. Mild preeclampsia. 3. Previous section x2. SURGEON: Ollie Galaviz DO ANESTHESIA: Spinal. ESTIMATED BLOOD LOSS: 600 mL. URINE OUTPUT: 100 mL clear at the end of the procedure. FLUIDS: 1500 mL lactated Ringer's solution. FINDINGS: A live female weighing 5 pounds 7 ounces, Apgars of 8 and 8. Grossly normal appearing uterus, bilateral fallopian tubes and ovaries. SPECIMEN SENT: Placenta. INDICATIONS FOR PROCEDURE: This 28-year-old female patient who had sought care in my office. She had an acute elevation of blood pressure started about 34 weeks and was diagnosed with mild preeclampsia last week at 36 weeks. Discussion was made with her last week to proceed with delivery at 37 weeks due to preeclampsia. Risk of the procedure were discussed with the patient in detail, she was agreeable to proceed. Consent was obtained, the patient was taken to the operating room. OPERATIVE REPORT IN DETAIL: Once in the operating room, spinal analgesia was administered and found to be adequate, was placed in the supine position with leftward tilt, prepped and draped in normal sterile fashion. A timeout was performed. Anesthesia was tested. I then make a Pfannenstiel skin incision through a preexisting scar using knife and carried down to fascia using Bovie cautery. The fascial incision extended laterally using Bovie cautery. The superior aspect of fascial incision was then grasped with Lino clamps, tented up and dissected off the underlying rectus muscles. The inferior aspect of the fascial incision was then grasped with Lino clamps, tented up and dissected off the underlying rectus muscles. Rectus muscles were dissected down the midline, which exposed the peritoneum, which I entered bluntly and extended using blunt traction. Juan Alberto ring retractor was placed in the peritoneal incision, which offers excellent lateral sidewall retraction. I identified the lower uterine segment, found to be thinned out and make a low transverse incision to the vesicouterine peritoneum and bluntly dissected this off the lower uterine segment, creating a bladder flap. I then proceeded my myotomy until membranes were visualized, at which point I extended the uterine incision laterally and superiorly using bandage scissors. Amniotomy was performed in the process of doing this, clear fluid was noted. Infant was found in vertex presentation. With gentle fundal pressure, the infant's head was elevated up the incision where delivered through the incision, the nares and oropharynx were bulb suctioned. Anterior and posterior shoulders were delivered and the was brought to the operative field where cords were doubly clamped and cut and infant was handed off to waiting nurses in attendance. Cord blood was collected. Three-vessel cord, intact placenta delivered spontaneously thereafter. IV Pitocin was initiated to facilitate uterine contraction. Uterine fundus confirmed by manual massage. The uterus was exteriorized and cleared off endometrial clots and debris. I then proceeded with closing the uterine incision using 0 Vicryl suture in a running locked fashion. Second layer of imbricating 0 Monocryl was placed. Excellent hemostasis was noted after doing this, then placed the uterus back in the pelvis and copiously irrigated the pelvis using normal saline. Once again, there was no active bleeding noted from any of my dissection planes. I placed Interceed antiadhesive over my low transverse incision. I removed the Juan Alberto ring retractor and proceeded with closing the peritoneum using 3-0 Vicryl suture in a running fashion. The rectus muscles were reapproximated using 3-0 Vicryl suture in interrupted fashion. The fascia was reapproximated using 0 Vicryl suture in a running fashion. The skin reapproximated using 4-0 Monocryl running subcuticular. Dermabond was applied to incision, sterile dressing with adhesive white tape. The patient tolerated the procedure well and was taken to recovery in stable condition. Lap and sponge counts were correct at the end of the procedure. Instrument counts correct as well. Two grams of Ancef given preoperatively for infection prophylaxis. Job ID: [id number] DocumentID: [id number] Dictated Date: 08/21/2023 16:32:37 [employer] Associate Date: 08/22/2023 00:06:00 Dictated By: OLLIE GALAVIZ DO
[2023-08-22] MEDS: HYDROcodone/ACETAMINOPHEN 5 MG/325 MG TABLET PO PRN ×4 (00:52→19:19)
[2023-08-22 04:00] VITALS: BP 134/74
[2023-08-22] MEDS: KETOROLAC INJ 30 MG/ML VIAL IV SCH ×2 (04:14→09:34)
[2023-08-22] MEDS: CATHETER FLUSH 10 ML SYR IV SCH ×2 (04:15→14:10)
[2023-08-22 05:49] LABS: BASOPHILS % (AUTO) 0 % (0-10); EOSINOPHILS # (AUTO) 0.1 10^3/uL (0.0-0.3); EOSINOPHILS % (AUTO) 1 % (0-10); HEMATOCRIT 29 % (35-52); HEMOGLOBIN 9.7 g/dL (11.5-16.0); LYMPHOCYTES # (AUTO) 2.4 10^3/uL (1.0-4.0); LYMPHOCYTES % (AUTO) 21 % (12-44); MEAN CORPUSCULAR HEMOGLOBIN 31 pg (25-34); MEAN CORPUSCULAR HGB CONC 33 g/dL (32-36); MEAN CORPUSCULAR VOLUME 94 fL (80-99); MEAN PLATELET VOLUME 10.7 fL (9.0-12.2); MONOCYTES # (AUTO) 0.5 10^3/uL (0.0-1.0); MONOCYTES % (AUTO) 5 % (0-12); NEUTROPHILS # (AUTO) 8.1 10^3/uL (1.8-7.8); NEUTROPHILS % (AUTO) 72 % (42-75); PLATELET COUNT 178 10^3/uL (130-400); WHITE BLOOD COUNT 11.2 10^3/uL (4.3-11.0)
--- NOTE | 2023-08-22 07:28 | Postpartum Progress Note ---
JNAICE CHANG 08/22/23 0728: Note Note Day # 1 Subjective: Patient is without complaints. Ambulating, voiding. Tolerating a regular diet without nausea or vomiting. Normal lochia. Pain is well controlled with oral pain medications. Patient on stool softeners but has not produced a bowel movement. Objective: Laboratory Tests 08/22/23 05:40: White Blood Count 11.2H, Red Blood Count 3.12L, Hemoglobin 9.7L, Hematocrit 29L, Mean Corpuscular Volume 94, Mean Corpuscular Hemoglobin 31, Mean Corpuscular Hemoglobin Concent 33, Red Cell Distribution Width 14.8H, Platelet Count 178, Mean Platelet Volume 10.7, Immature Granulocyte % (Auto) 0, Neutrophils (%) (Auto) 72, Lymphocytes (%) (Auto) 21, Monocytes (%) (Auto) 5, Eosinophils (%) (Auto) 1, Basophils (%) (Auto) 0, Neutrophils # (Auto) 8.1H, Lymphocytes # (Auto) 2.4, Monocytes # (Auto) 0.5, Eosinophils # (Auto) 0.1, Basophils # (Auto) 0.0, Immature Granulocyte # (Auto) 0.0 VS - Last 72 Hours, by Label 08/21/23 08/21/23 08/21/23 08/21/23 10:55 11:38 15:21 15:21 Temp 36.4 36.3 Pulse 78 Resp 20 20 18 B/P (MAP) 140/93 (109) 130/69 (89) Pulse Ox 99 99 O2 Delivery Room Air Room Air Room Air 08/21/23 08/21/23 08/21/23 08/21/23 15:30 15:30 15:40 15:40 Resp 18 18 B/P (MAP) 124/67 (86) 129/77 (94) Pulse Ox 97 99 O2 Delivery Room Air Room Air Room Air Room Air 08/21/23 08/21/23 08/21/23 08/21/23 15:50 15:53 16:00 16:03 Resp 18 18 B/P (MAP) 140/89 (106) 150/101 (117) Pulse Ox 99 100 O2 Delivery Room Air Room Air Room Air Room Air 08/21/23 08/21/23 08/21/23 08/21/23 16:10 16:15 16:15 18:39 Temp 36.5 Resp 18 18 B/P (MAP) 144/87 (106) 142/85 (104) Pulse Ox 99 99 97 O2 Delivery Room Air Room Air Room Air Room Air 08/21/23 08/21/23 08/22/23 08/22/23 18:55 20:00 00:00 04:00 Temp 37.2 36.7 36.3 36.4 Pulse 100 85 73 69 Resp 18 18 16 16 B/P (MAP) 148/76 (100) 147/79 (101) 132/79 (96) 134/74 (94) Pulse Ox 97 97 97 97 O2 Delivery Room Air Room Air Room Air Room Air Physical Exam: General - Alert and oriented, no apparent distress Abdomen - Soft, appropriately tender to palpation, non-distended, fundus firm at umbilicus, incision site is clean, dry, intact Extremities - SCDs in placed bilaterally, no edema, negative Sherif's bilaterally Assessment: Post- day # 1, status post RLTCS. Recovering well, hemodynamically stable Mild Preeclampsia GBS neg Hx of illicit drug use Tobacco use in Plan: Routine care. Encourage breast feeding. Encourage ambulation. Ferrous sulfate supplementation. Plan for discharge. Vitals - Labs Vital Signs - I&O Vital Signs Date Time Temp Pulse Resp B/P (MAP) Pulse Ox O2 Delivery O2 Flow Rate FiO2 08/22/23 04:00 36.4 69 16 134/74 (94) 97 Room Air 08/22/23 00:00 36.3 73 16 132/79 (96) 97 Room Air 08/21/23 20:00 36.7 85 18 147/79 (101) 97 Room Air 08/21/23 18:55 37.2 100 18 148/76 (100) 97 Room Air 08/21/23 18:39 97 Room Air 08/21/23 16:15 Room Air 08/21/23 16:15 36.5 18 142/85 (104) 99 Room Air 08/21/23 16:10 18 144/87 (106) 99 Room Air 08/21/23 16:03 Room Air 08/21/23 16:00 18 150/101 (117) 100 Room Air 08/21/23 15:53 Room Air 08/21/23 15:50 18 140/89 (106) 99 Room Air 08/21/23 15:40 18 129/77 (94) 99 Room Air 08/21/23 15:40 Room Air 08/21/23 15:30 18 124/67 (86) 97 Room Air 08/21/23 15:30 Room Air 08/21/23 15:21 36.3 18 130/69 (89) 99 Room Air 08/21/23 15:21 Room Air 08/21/23 11:38 20 140/93 (109) 08/21/23 10:55 36.4 78 20 99 Room Air I & O 08/22/23 07:00 Intake Total 3350 ml Output Total 1600 ml Balance 1750 ml Labs Laboratory Tests 08/21/23 11:21: White Blood Count 9.5, Red Blood Count 3.54L, Hemoglobin 11.0L, Hematocrit 33L, Mean Corpuscular Volume 92, Mean Corpuscular Hemoglobin 31, Mean Corpuscular Hemoglobin Concent 34, Red Cell Distribution Width 14.6H, Platelet Count 200, Mean Platelet Volume 10.6, Immature Granulocyte % (Auto) 1, Neutrophils (%) (Auto) 74, Lymphocytes (%) (Auto) 19, Monocytes (%) (Auto) 5, Eosinophils (%) (Auto) 1, Basophils (%) (Auto) 0, Neutrophils # (Auto) 7.1, Lymphocytes # (Auto) 1.8, Monocytes # (Auto) 0.5, Eosinophils # (Auto) 0.1, Basophils # (Auto) 0.0, Immature Granulocyte # (Auto) 0.1 08/22/23 05:40: White Blood Count 11.2H, Red Blood Count 3.12L, Hemoglobin 9.7L, Hematocrit 29L, Mean Corpuscular Volume 94, Mean Corpuscular Hemoglobin 31, Mean Corpuscular Hemoglobin Concent 33, Red Cell Distribution Width 14.8H, Platelet Count 178, Mean Platelet Volume 10.7, Immature Granulocyte % (Auto) 0, Neutrophils (%) (Auto) 72, Lymphocytes (%) (Auto) 21, Monocytes (%) (Auto) 5, Eosinophils (%) (Auto) 1, Basophils (%) (Auto) 0, Neutrophils # (Auto) 8.1H, Lymphocytes # (Auto) 2.4, Monocytes # (Auto) 0.5, Eosinophils # (Auto) 0.1, Basophils # (Auto) 0.0, Immature Granulocyte # (Auto) 0.0 OLLIE GALAVIZ DO 08/22/23 0733: Note Note Incision : c/d/i Verification and Attestation of Medical Student E/M Service A medical student performed and documented this service in my presence. I reviewed and verified all information documented by the medical student and made modifications to such information, when appropriate. I personally performed the physical exam and medical decision making. Ollie Galaviz, Aug 22, 2023,07:33 JANICE CHANG Aug 22, 2023 07:28 OLLIE GALAVIZ DO Aug 22, 2023 07:33
[2023-08-22 08:00] VITALS: BP 140/95
[2023-08-22] MEDS: LABETALOL 200 MG TABLET PO SCH ×2 (09:34→21:10)
[2023-08-22] MEDS: DOCUSATE SODIUM 100 MG CAPSULE PO SCH ×2 (09:34→21:10)
--- NOTE | 2023-08-22 11:00 | Anesthesia-Regional Post-Op ---
Regional Patient Condition Mental Status: Alert, Oriented x3 Circulation: Same as Pre-Op Headache: Absent Sensation: Full Recovery Motor Block: Absent Post Op Complications Complications None Follow Up Care/Instructions Patient Instructions None needed. Anesthesia/Patient Condition Patient is doing well, no complaints, stable vital signs, no apparent adverse anesthesia problems. No complications reported per nursing. BRYSON SUE CRNA Aug 22, 2023 11:00
[2023-08-22 12:00] VITALS: BP 137/84
[2023-08-22] MEDS: IBUPROFEN 600 MG TABLET PO SCH ×2 (15:28→21:10)
[2023-08-22 16:00] VITALS: BP 132/74
[2023-08-22 21:10] VITALS: BP 157/96
[2023-08-22] MEDS ORDERED: SIMETHICONE 80 MG CHEWABLE TABLET ONE (21:13)
[2023-08-22] MEDS: SIMETHICONE 80 MG CHEWABLE TABLET PO SCH (21:14)
[2023-08-23] MEDS: HYDROcodone/ACETAMINOPHEN 5 MG/325 MG TABLET PO PRN ×2 (01:25→09:02)
[2023-08-23] MEDS: SIMETHICONE 80 MG CHEWABLE TABLET PO SCH ×2 (01:26→08:59)
[2023-08-23 04:38] VITALS: BP 115/69
[2023-08-23] MEDS: IBUPROFEN 600 MG TABLET PO SCH ×2 (04:38→09:00)
--- NOTE | 2023-08-23 08:07 | Postpartum Progress Note ---
Note Note Day # 2 Subjective: Patient is without complaints. Ambulating, voiding. Tolerating a regular diet without nausea or vomiting. Normal lochia. Pain is well controlled with oral pain medications. Objective: Physical Exam: General - Alert and oriented, no apparent distress Abdomen - Soft, appropriately tender to palpation, non-distended, fundus firm at umbilicus Extremities - no edema, negative Sherif's bilaterally Incision- c/d/i Assessment: POD 2 RLTCS PIH-BP overall well controlled on Labetalol 200 bid Acute blood loss anemia Plan: Routine care. Encourage breast feeding. Encourage ambulation. Ferrous sulfate supplementation. Plan for discharge today, short term follow up for BP Vitals - Labs Vital Signs - I&O Vital Signs Date Time Temp Pulse Resp B/P (MAP) Pulse Ox O2 Delivery O2 Flow Rate FiO2 08/23/23 04:38 36.4 78 18 115/69 (84) 97 Room Air 08/22/23 21:10 36.2 77 18 157/96 (116) 97 Room Air 08/22/23 16:00 36.3 78 18 132/74 (93) 97 Room Air 08/22/23 12:00 36.5 76 18 137/84 (101) 96 Room Air ANASTACIABETTY Demetrio MCKEON Aug 23, 2023 08:07
[2023-08-23] MEDS ORDERED: LABE200T10 PO (08:08)
[2023-08-23 08:57] VITALS: BP 144/76
[2023-08-23] MEDS: DOCUSATE SODIUM 100 MG CAPSULE PO SCH (09:00)
[2023-08-23] MEDS: LABETALOL 200 MG TABLET PO SCH (09:00)
== END 2023-08-23 14:20 | disposition home or self-care (01) | DRG 787 ==
LOC: LDRP 10:34
PROVIDERS: ADMIT Obstetrics & Gynecology; ATTEND Obstetrics & Gynecology
PROC: 10D00Z1 Extraction of Products of Conception, Low, Open Approach (ICD-10-PCS; principal; 2023-08-21 14:22)
DX: O14.04 Mild to moderate pre-eclampsia, complicating childbirth (principal); D62 Acute posthemorrhagic anemia; Z37.0 Single live birth; O90.81 Anemia of the puerperium; O34.211 Maternal care for low transverse scar from previous cesarean delivery; O99.334 Smoking (tobacco) complicating childbirth; Z3A.37 37 weeks gestation of pregnancy; Z88.1 Allergy status to other antibiotic agents; Z91.09 Other allergy status, other than to drugs and biological substances
CPT/HCPCS: 36415; 85025; 86850; 86900; 86901; 94664

== ENCOUNTER 2023-08-27 08:24 | Emergency (ER) | payer MEDICAID ==
[~2023-08-27] VITALS: Ht 157.5 cm; Wt 60.7 kg
[~2023-08-27 08:24] MED LIST changes: +LABE200T10 PO
[2023-08-27 08:43] LABS: BASOPHILS % (AUTO) 0 % (0-10); EOSINOPHILS # (AUTO) 0.3 10^3/uL (0.0-0.3); EOSINOPHILS % (AUTO) 3 % (0-10); HEMATOCRIT 32 % (35-52); HEMOGLOBIN 10.6 g/dL (11.5-16.0); LYMPHOCYTES # (AUTO) 1.7 10^3/uL (1.0-4.0); LYMPHOCYTES % (AUTO) 24 % (12-44); MEAN CORPUSCULAR HEMOGLOBIN 32 pg (25-34); MEAN CORPUSCULAR HGB CONC 33 g/dL (32-36); MEAN CORPUSCULAR VOLUME 95 fL (80-99); MEAN PLATELET VOLUME 9.2 fL (9.0-12.2); MONOCYTES # (AUTO) 0.4 10^3/uL (0.0-1.0); MONOCYTES % (AUTO) 6 % (0-12); NEUTROPHILS # (AUTO) 4.8 10^3/uL (1.8-7.8); NEUTROPHILS % (AUTO) 67 % (42-75); PLATELET COUNT 257 10^3/uL (130-400); WHITE BLOOD COUNT 7.3 10^3/uL (4.3-11.0)
--- NOTE | 2023-08-27 08:52 | ED GU-Female ---
General Chief Complaint: (<6 weeks) Stated Complaint: CSECTION COMPLICATIONS Source: patient, old records Exam Limitations: no limitations History of Present Illness Date Seen by Provider: Aug 27, 2023 Time Seen by Provider: 08:26 Initial Comments 28yoF s/p LTCS on 08/21 with complicated by mild preeclampsia on labetalol coming in due to increasing bleeding from her surgical scar. Bleeding has been slowing down and she barely has any vaginal bleeding at this point. Her pain is also improving every day. This morning she woke up, noticed her pants were wet in the front, and noticed a decent amount of what she calls blood around it. It has since stopped draining anything. She took her blood pressure medicine and her hydrocodone less than 15 minutes prior to arrival here. She also has noticed swelling on her legs which has been present since delivery, she states is getting slightly worse. She is pumping breastmilk every couple of hours successfully. Denies any fever, rash, vaginal discharge, dysuria, flank pain, or any other concerns. Allergies and Home Medications Allergies Coded Allergies: amoxicillin (Verified Allergy, Mild, 03/21/18) clavulanic acid (Verified Allergy, Mild, 03/21/18) Patient Home Medication List Home Medication List Reviewed: Yes Cephalexin (Keflex) 500 Mg Capsule, 500 MG PO BID Prescribed by: KARTIK ISRAEL on 07/25/19 1207 Desvenlafaxine Succinate (Pristiq ER) 25 Mg Tab.er.24h, Unknown Dose PO, (Reported) Entered as Reported by: TRESSA CRAVEN on 07/25/19 1110 Docusate Sodium (Docusate Sodium) 100 Mg Capsule, 100 MG PO BID PRN for CONSTIPATION-1ST LINE Prescribed by: BETTY AHUMADA on 08/21/23 1431 Gabapentin (Gabapentin) 100 Mg Capsule, Unknown Dose PO Q8H, (Reported) Entered as Reported by: TRESSA CRAVEN on 07/25/19 1110 Hydrocodone/Acetaminophen (Hydrocodone-Acetamin 5-325 mg) 5 Mg-325 Mg Tablet, 1- 2 EA PO Q6HR PRN for PAIN-MODERATE (5-7) Prescribed by: BETTY AHUMADA on 08/21/23 1432 Ibuprofen (Ibu) 600 Mg Tablet, 600 MG PO Q6H Prescribed by: BETTY AHUMADA on 08/21/23 1431 Labetalol HCl (Labetalol HCl) 200 Mg Tablet, 200 MG PO BID Prescribed by: BETTY AHUMADA on 08/23/23 0808 Discontinued Medications Ondansetron (Ondansetron Odt) 4 Mg Tab.rapdis, 4 MG PO Q6H PRN for NAUSEA/VOMITING Prescribed by: KARTIK ISRAEL on 08/13/19 1823 Review of Systems Review of Systems Constitutional: No fever EENTM: no symptoms reported Respiratory: no symptoms reported Cardiovascular: no symptoms reported Gastrointestinal: no symptoms reported Genitourinary: see HPI Musculoskeletal: no symptoms reported Skin: see HPI Psychiatric/Neurological: No Symptoms Reported Endocrine: No Symptoms Reported Past Vgylaef-Hlzwlb-Tyhxxg Hx Patient Social History Tobacco Use?: Yes Tobacco type used: Cigarettes Use of E-Cig and/or Vaping dev: No Substance use?: No Alcohol Use?: No Pt feels they are or have been: No Immunizations Up To Date Tetanus Booster (TDap): Unknown PED Vaccines UTD: Yes Seasonal Allergies Seasonal Allergies: No Past Medical History Surgeries: Yes ( X 2L RIGHT FOREARM FX/ ORIF) Section, Orthopedic, Tonsillectomy Respiratory: No Cardiac: No Neurological: No Reproductive Disorders: No Female Reproductive Disorders: Denies PEDIATRIC DENTAL ASSISTANT History: IUD Sexually Transmitted Disease: No HIV/AIDS: No Genitourinary: No Gastrointestinal: No Musculoskeletal: Yes (RIGHT FOREARM FX/ORIF-' nerve damage' PER PT) Fractures Endocrine: No HEENT: No Loss of Vision: Denies Hearing Impairment: Denies Cancer: No Psychosocial: No Integumentary: Yes Eczema Blood Disorders: No Adverse Reaction/Blood Tranf: No Family Medical History No Pertinent Family Hx Physical Exam Vital Signs Vital Signs - First Documented 08/27/23 08:29 Temp 36.9 Pulse 73 Resp 17 B/P (MAP) 184/110 (134) Pulse Ox 97 O2 Delivery Room Air Capillary Refill : Height, Weight, BMI Height: 5'2.00" Weight: 115lbs. 4.0oz. [id number]; 26.44 BMI Method:Stated General Appearance: WD/WN, no apparent distress HEENT: PERRL/EOMI, normal ENT inspection, pharynx normal Neck: non-tender, full range of motion, supple, normal inspection Cardiovascular: regular rate, rhythm, no murmur Respiratory: chest non-tender, lungs clear, normal breath sounds, no respiratory distress, no accessory muscle use Gastrointestinal: normal bowel sounds, non tender, soft; No distended, No guarding, No rebound; other (Surgical wound on her lower abdomen appears clean, dry, there is some dried blood, no active bleeding, is intact) Back: normal inspection, no CVA tenderness Extremities: normal range of motion, non-tender, normal inspection, no calf tenderness, normal capillary refill, pedal edema Neurologic/Psychiatric: no motor/sensory deficits, alert, normal mood/affect Skin: normal color, warm/dry Progress/Results/Core Measures Suspected Sepsis SIRS Temperature: Pulse: Respiratory Rate: Laboratory Tests 08/27/23 08:38: White Blood Count 7.3 Blood Pressure / Mean: Laboratory Tests 08/27/23 08:38: Creatinine 0.84, INR Comment 1.0, Platelet Count 257, Total Bilirubin 0.6 Results/Orders Lab Results Laboratory Tests Test 08/27/23 08:38 08/27/23 08:47 Range/Units White Blood Count 7.3 4.3-11.0 10^3/uL Red Blood Count 3.37 L 3.80-5.11 10^6/uL Hemoglobin 10.6 L 11.5-16.0 g/dL Hematocrit 32 L 35-52 % Mean Corpuscular Volume 95 80-99 fL Mean Corpuscular Hemoglobin 32 25-34 pg Mean Corpuscular Hemoglobin Concent 33 32-36 g/dL Red Cell Distribution Width 14.9 H 10.0-14.5 % Platelet Count 257 130-400 10^3/uL Mean Platelet Volume 9.2 9.0-12.2 fL Immature Granulocyte % (Auto) 0 % Neutrophils (%) (Auto) 67 42-75 % Lymphocytes (%) (Auto) 24 12-44 % Monocytes (%) (Auto) 6 0-12 % Eosinophils (%) (Auto) 3 0-10 % Basophils (%) (Auto) 0 0-10 % Neutrophils # (Auto) 4.8 1.8-7.8 10^3/uL Lymphocytes # (Auto) 1.7 1.0-4.0 10^3/uL Monocytes # (Auto) 0.4 0.0-1.0 10^3/uL Eosinophils # (Auto) 0.3 0.0-0.3 10^3/uL Basophils # (Auto) 0.0 0.0-0.1 10^3/uL Immature Granulocyte # (Auto) 0.0 0.0-0.1 10^3/uL Prothrombin Time 14.0 12.2-14.7 SEC INR Comment 1.0 0.8-1.4 Activated Partial Thromboplast Time 31 24-35 SEC Sodium Level 138 135-145 MMOL/L Potassium Level 3.9 3.6-5.0 MMOL/L Chloride Level 110 H 98-107 MMOL/L Carbon Dioxide Level 21 21-32 MMOL/L Anion Gap 7 5-14 MMOL/L Blood Urea Nitrogen 14 7-18 MG/DL Creatinine 0.84 0.60-1.30 MG/DL Estimat Glomerular Filtration Rate 98 BUN/Creatinine Ratio 17 Glucose Level 79 70-105 MG/DL Calcium Level 8.5 8.5-10.1 MG/DL Corrected Calcium 9.1 8.5-10.1 MG/DL Total Bilirubin 0.6 0.1-1.0 MG/DL Aspartate Amino Transf (AST/SGOT) 14 5-34 U/L Alanine Aminotransferase (ALT/SGPT) 9 0-55 U/L Alkaline Phosphatase 107 40-136 U/L Lactate Dehydrogenase 176 125-220 U/L B-Type Natriuretic Peptide 302.9 H <100.0 PG/ML Total Protein 6.2 L 6.4-8.2 GM/DL Albumin 3.3 3.2-4.5 GM/DL Lipase 17 8-78 U/L Urine Color YELLOW Urine Clarity SLIGHTLY CLOUDY Urine pH 6.0 5-9 Urine Specific Swisher 1.020 1.016-1.022 Urine Protein NEGATIVE NEGATIVE Urine Glucose (UA) NEGATIVE NEGATIVE Urine Ketones NEGATIVE NEGATIVE Urine Nitrite NEGATIVE NEGATIVE Urine Bilirubin NEGATIVE NEGATIVE Urine Urobilinogen 1.0 < = 1.0 MG/DL Urine Leukocyte Esterase 1+ H NEGATIVE Urine RBC (Auto) 1+ H NEGATIVE Urine RBC RARE /HPF Urine WBC 5-10 H /HPF Urine Squamous Epithelial Cells 2-5 /HPF Urine Crystals NONE /LPF Urine Bacteria TRACE /HPF Urine Casts NONE /LPF Urine Mucus NEGATIVE /LPF Urine Trichomonas MODERATE H /HPF Urine Culture Indicated YES My Orders Orders - DEMETRIUS HENRY MD [facility] (08/27/23 08:37) Cbc And Automated Diff (08/27/23 08:37) Comprehensive Metabolic Panel (08/27/23 08:37) Lipase (08/27/23 08:37) Protime With Inr (08/27/23 08:37) Partial Thromboplastin Time (08/27/23 08:37) Ed Iv/Invasive Line Start (08/27/23 08:37) LDH (08/27/23 08:37) Ua Culture If Indicated (08/27/23 08:37) Urine Culture (08/27/23 08:47) Labetalol Injection (Sdv) (Labetalol Inj (08/27/23 09:30) Medications Given in ED Current Medications Medications Dose Ordered Sig/Anibal Route Start Time Stop Time Status Last Admin Dose Admin Labetalol HCl 10 mg ONCE ONCE IV 08/27/23 09:30 08/27/23 09:31 DC 08/27/23 09:25 10 MG Vital Signs/I&O 08/27/23 08:29 Temp 36.9 Pulse 73 Resp 17 B/P (MAP) 184/110 (134) Pulse Ox 97 O2 Delivery Room Air Capillary Refill : Progress Note : Progress Note 28-year-old female with above history coming in initially due to bleeding around her wound. ABCs were intact and vitals were stable on presentation. The blood is dry, has some components that looks serous in nature. There is no active bleeding and her wound feels normal at this time. I suspect it was a seroma. Additionally, an IV was placed and basic labs were obtained and were significant for an increase in her hemoglobin which is reassuring, and her vaginal bleeding is slowed down. Creatinine normal, platelets normal, LDH normal, LFTs normal all making preeclampsia with severe features unlikely. Urinalysis without protein, but does have trichomonas. She was sexually active just prior to the delivery. I will treat her with Flagyl and discussed with what to do with her breastmilk. I discussed all of this with Dr. Aldrich, the SHIP SUPERINTENDENT on-call. He was agreeable to this plan. He recommends increasing her labetalol from 2 times a day to 3 times a day and following up with her regular doctor in 2 days, which she is already scheduled for that appointment. She is otherwise well-appearing and I believe stable for discharge with outpatient follow-up. She was sent home with strict return precautions. Departure Impression Primary Impression: induced hypertension Qualified Codes: O13.9 - Gestational [-induced] hypertension without significant proteinuria, unspecified trimester Additional Impression: Trichomonal infection Disposition: HOME, SELF-CARE Condition: Stable Departure-Patient Inst. Decision time for Depature: 09:40 Referrals: BETTY AHUMADA,LOCAL PHYSICIAN (PCP) Primary Care Physician Patient Instructions: Trichomoniasis (DC) Add. Discharge Instructions: We did see trichomonas in your urine. We recommend taking metronidazole 2000 mg 1 time. We recommend having food on your stomach before you take this. We also recommend any of your partners to be treated as well before you are sexually active with them again. They can call their regular doctor or go to the health department. We recommend pumping and throwing away the breastmilk for at least 4 hours after this medicine. If you want to be extra safe, you can throw away the milk for 1 day and start giving the breastmilk after that. You can supplement with formula feeding during that time. Begin taking the labetalol f or your blood pressure 3 times a day instead of twice a day. This is all per the SHIP SUPERINTENDENT that was on-call today. Follow-up with Dr. Ahumada as you have stated on Monday. We believe the bleeding was from what is called a seroma, and will improve. Scripts Metronidazole (Metronidazole) 500 Mg Tablet 2000 MG PO ONCE for 1 Day, #4 TAB Prov: DEMETRIUS HENRY MD 08/27/23 DEMETRIUS HENRY MD Aug 27, 2023 08:51
[2023-08-27 08:53] LABS: ALBUMIN 3.3 GM/DL (3.2-4.5); POTASSIUM 3.9 MMOL/L (3.6-5.0)
[2023-08-27 08:55] LABS: CALCIUM 8.5 MG/DL (8.5-10.1)
[2023-08-27 08:56] LABS: TOTAL PROTEIN 6.2 GM/DL (6.4-8.2)
[2023-08-27 08:58] LABS: BILIRUBIN,TOTAL 0.6 MG/DL (0.1-1.0)
[2023-08-27 08:59] LABS: CREATININE SERUM 0.84 MG/DL (0.60-1.30)
[2023-08-27 09:02] LABS: COLOR,URINE YELLOW
[2023-08-27 09:03] LABS: BACTERIA,URINE TRACE /HPF; BILIRUBIN,URINE NEGATIVE (NEGATIVE); CLARITY,URINE SLIGHTLY CLOUDY; GLUCOSE, URINE (UA) NEGATIVE (NEGATIVE); KETONES,URINE NEGATIVE (NEGATIVE); LEUKOCYTE ESTERASE ,URINE 1+ (NEGATIVE); NITRITE,URINE NEGATIVE (NEGATIVE); PROTEIN,URINE NEGATIVE (NEGATIVE); RBC,URINE RARE /HPF
[2023-08-27 09:04] LABS: TRICHOMONAS,URINE MODERATE /HPF
[2023-08-27] MEDS ORDERED: LABETALOL 5 mg/ml 4 ML SINGLE DOSE SYRINGE IV ONE (09:30)
[2023-08-27] MEDS ORDERED: METR-145 PO (09:40)
[2023-08-27 10:06] VITALS: BP 188/120
== END 2023-08-27 10:06 | disposition home or self-care (01) ==
LOC: EDUNIT# 08:24 → ER 08:26
DX: O16.5 Unspecified maternal hypertension, complicating the puerperium (principal); O99.335 Smoking (tobacco) complicating the puerperium; O86.89 Other specified puerperal infections; B97.89 Other viral agents as the cause of diseases classified elsewhere; F17.210 Nicotine dependence, cigarettes, uncomplicated
CPT/HCPCS: 36415; 80053; 81000; 83615; 83690; 83880; 85025; 85610; 85730; 87088; 96374